=== PATIENT | female | born 1970 | race African-American/Black ===

== ENCOUNTER → 2016-10-05 | Outpatient (CLI) | payer MEDICAID ==
[2016-10-05 15:26] LABS: THYROID STIMULATING HORMONE 0.78 uIU/mL (0.47-4.68)
== END ==
LOC: OD 13:47
PROVIDERS: ATTEND Physician Assistant Medical
DX: R53.83 Other fatigue (principal); R61 Generalized hyperhidrosis
CPT/HCPCS: 36415; 84439; 84443

== ENCOUNTER 2017-11-10 16:07 | Emergency (ER) | payer SELFPAY ==
[2017-11-10] MEDS ORDERED: ONDANSETRON HCL INJ/PF 4 MG/2 ML SDV IV ONE (17:00)
[2017-11-10] MEDS ORDERED: HYDROMORPHONE HCL INJ/PF 2 MG/ML AMPULE IV ONE (17:01)
[2017-11-10] MEDS ORDERED: ACETAMINOPHEN 325 MG TABLET PO ONE (17:02)
--- NOTE | 2017-11-10 17:03 | ER Document Report ---
ED Medical Screen (RME) - General Chief Complaint: Sickle Cell Crisis Stated Complaint: ABDOMINAL PAIN Time Seen by Provider: 11/10/17 16:48 Mode of Arrival: Wheelchair Information source: Patient Notes: 46-year-old female sickle cell disease presents with complaints of abdominal pain 5 out of 5 that started yesterday patient noted to be febrile I have greeted and performed a rapid initial assessment of this patient. A comprehensive ED assessment and evaluation of the patient, analysis of test results and completion of the medical decision making process will be conducted by additional ED providers. PHYSICAL EXAMINATION: GENERAL: febrile HEAD: Atraumatic, normocephalic. EYES: Pupils equal round extraocular movements intact, conjunctiva are normal. ENT: Nares patent NECK: Normal range of motion LUNGS: No respiratory distress Abd: abd tenderness Musculoskeletal: Normal range of motion NEUROLOGICAL: Normal speech, normal gait. PSYCH: Normal mood, normal affect. SKIN: Warm, Dry, normal turgor, no rashes or lesions noted. TRAVEL OUTSIDE OF THE [place] IN LAST 30 DAYS: No - Related Data Allergies/Adverse Reactions: No Known Allergies Allergy (Verified 11/10/17 16:18) Past Medical History - Social History Frequency of alcohol use: None Drug Abuse: None - Past Medical History Cardiac Medical History: Reports: Hx Hypertension Denies: Hx Coronary Artery Disease, Hx Heart Attack Pulmonary Medical History: Reports: Hx Pneumonia - 2010 Denies: Hx Asthma, Hx Bronchitis, Hx COPD Neurological Medical History: Denies: Hx Cerebrovascular Accident, Hx Seizures Renal/ Medical History: Denies: Hx Peritoneal Dialysis Musculoskeltal Medical History: Reports Hx Arthritis - generalized Past Surgical History: Reports: Hx Breast Surgery - bilateral biospy, Hx Cholecystectomy, Hx Orthopedic Surgery - right hip, shoulder, elbow, Hx Tubal Ligation - Immunizations Hx Diphtheria, Pertussis, Tetanus Vaccination: Yes Physical Exam - Vital signs Vitals: Temp Pulse Resp BP Pulse Ox 103.0 F H 103 H 16 133/71 H 93 11/10/17 16:22 11/10/17 16:22 11/10/17 16:22 11/10/17 16:22 11/10/17 16:22 Course - Vital Signs Vital signs: Temp Pulse Resp BP Pulse Ox 103.0 F H 103 H 16 133/71 H 93 11/10/17 16:22 11/10/17 16:22 11/10/17 16:22 11/10/17 16:22 11/10/17 16:22
[2017-11-10 17:32] LABS: VENOUS BLOOD BASE EXCESS 5.4 mmol/L; VENOUS BLOOD HCO3 30.2 mmol/L (20-32); VENOUS BLOOD PCO2 45.4 mmHg (35-63); VENOUS BLOOD PH 7.44 (7.30-7.42)
[2017-11-10 17:34] LABS: ABSOLUTE RETICS # 0.118 10^6/uL (0.028-0.122); HEMATOCRIT 33.2 % (36.0-47.0); HEMOGLOBIN 11.6 g/dL (12.0-15.5); MEAN CORPUSCULAR HGB CONC 34.9 g/dL (32.0-36.0); MEAN CORPUSCULAR VOLUME 109 fl (80-97); PLATELET COUNT 292 10^3/uL (150-450); RED BLOOD COUNT 3.04 10^6/uL (3.72-5.28); RED CELL DISTRIBUTION WIDTH 19.1 % (11.5-14.0); RETICULOCYTE COUNT (AUTO) 3.86 % (0.66-2.85); WHITE BLOOD COUNT 17.1 10^3/uL (4.0-10.5)
[2017-11-10] MEDS: NORMAL SALINE 1000 ML 1,000 ML IV PRN ×4 (17:35→21:20)
[2017-11-10 17:38] LABS: INTERNATIONAL RATION (INR) 1.97; PROTHROMBIN TIME 23.5 SEC (11.4-15.4)
--- NOTE | 2017-11-10 17:42 | RADIOLOGY REPORT (SQ) ---
EXAM DESCRIPTION: CHEST PA/LAT COMPLETED DATE/TIME: 11/10/2017 5:34 pm REASON FOR STUDY: fever COMPARISON: 10/24/2015. EXAM PARAMETERS: NUMBER OF VIEWS: two views TECHNIQUE: Digital Frontal and Lateral radiographic views of the chest acquired. RADIATION DOSE: NA LIMITATIONS: none FINDINGS: LUNGS AND PLEURA: No opacities, masses or pneumothorax. No pleural effusion. MEDIASTINUM AND HILAR STRUCTURES: No masses or contour abnormalities. HEART AND VASCULAR STRUCTURES: Heart normal size. No evidence for failure. BONES: No acute findings. HARDWARE: Surgical clips in the soft tissues. OTHER: No other significant finding. IMPRESSION: NO SIGNIFICANT RADIOGRAPHIC FINDING IN THE CHEST. TECHNICAL DOCUMENTATION: JOB ID: [id number] [employer]- All Rights Reserved Reading location - IP/workstation name: [email or web address]
[2017-11-10 17:49] LABS: ALANINE AMINOTRANSFERASE 188 U/L (9-52); ALBUMIN 4.7 g/dL (3.5-5.0); ALKALINE PHOSPHATASE 322 U/L (38-126); ANION GAP 16 (5-19); ASPARTATE AMINO TRANSFERASE 366 U/L (14-36); BILIRUBIN,DIRECT 9.6 mg/dL (0.0-0.4); BILIRUBIN,TOTAL 15.5 mg/dL (0.2-1.3); BLOOD UREA NITROGEN 13 mg/dL (7-20); CALCIUM 9.8 mg/dL (8.4-10.2); CARBON DIOXIDE 30 mmol/L (22-30); CHLORIDE 97 mmol/L (98-107); GLUCOSE 110 mg/dL (75-110); POTASSIUM 3.8 mmol/L (3.6-5.0); SODIUM 143.4 mmol/L (137-145)
[2017-11-10 17:51] LABS: ABSOLUTE LYMPHOCYTES# (MANUAL) 0.5 10^3/uL (0.5-4.7); ABSOLUTE MONOCYTES # (MANUAL) 0.3 10^3/uL (0.1-1.4); ABSOLUTE NEUTROPHILS# (MANUAL) 16.2 10^3/uL (1.7-8.2); BAND NEUTROPHILS % (MANUAL) 9 % (3-5); BASOPHILS % (MANUAL) 0 % (0-2); EOSINOPHILS % (MANUAL) 0 % (0-6); LYMPHOCYTES % (MANUAL) 3 % (13-45); MONOCYTES % (MANUAL) 2 % (3-13); SEGMENTED NEUTROPHILS % (MAN) 86 % (42-78); TOTAL CELLS COUNTED 100
[2017-11-10 17:58] LABS: ANISOCYTOSIS 2+; PLATELET COMMENT ADEQUATE; TARGET CELLS 2+
[2017-11-10 17:59] LABS: OVALOCYTES SLIGHT; POIKILOCYTOSIS 2+; POLYCHROMASIA SLIGHT; SICKLE RED CELLS 1+; TOXIC VACUOLATION PRESENT
[2017-11-10] MEDS ORDERED: VANCOMYCIN HCL INJ 1000 MG VIAL IV ONE (18:09)
[2017-11-10] MEDS ORDERED: PIPERACILLIN/TAZOBACTAM 4.5 GM VIAL IV ONE (18:09)
--- NOTE | 2017-11-10 18:12 | EKG REPORT ---
SEVERITY:- ABNORMAL ECG - SINUS TACHYCARDIA NONSPECIFIC ST-T CHANGES, DIFFUSE. CLINICAL CORRELATION NEEDED. : Confirmed by: Davie Hernandez MD 10-Nov-2017 18:12:27
--- NOTE | 2017-11-10 19:11 | ER Document Report ---
Sepsis - Sepsis Documentation Sepsis Patient: Yes - Vital Signs Vitals: Temp Pulse Resp BP Pulse Ox 103.0 F H 103 H 16 133/71 H 93 11/10/17 16:22 11/10/17 16:22 11/10/17 16:22 11/10/17 16:22 11/10/17 16:22 Interpretation: Tachycardic, Febrile - Cardiovascular Peripheral Pulse Strength: Strong Capillary refill: < 3 seconds Rhythm: Tachycardia Heart Sounds: Normal auscultation - Respiratory Breath Sounds: Clear. negative: Wheezing, Decreased air movement, Productive cough, Fine Crackle, Coarse Respiratory Status: No respiratory distress. No: Respiratory distress, Tachypnea
--- NOTE | 2017-11-10 19:12 | ER Document Report ---
ED General <NATASHA DALEY - Last Filed: 11/11/17 03:00> - General Mode of Arrival: Wheelchair Information source: Patient, Parent, Relative Cannot obtain history due to: Altered mental status TRAVEL OUTSIDE OF THE [place] IN LAST 30 DAYS: No - HPI Onset: Yesterday Onset/Duration: Gradual Quality of pain: Stabbing, Throbbing Severity: Moderate Pain Level: 3 Associated symptoms: Diarrhea, Fever, Nausea, Vomiting. denies: Nonproductive cough, Productive cough Exacerbated by: Denies Relieved by: Denies Similar symptoms previously: No Recently seen / treated by doctor: No <SANTOSRAFAL MURRAY - Last Filed: 11/12/17 12:34> - General Chief Complaint: Sickle Cell Crisis Stated Complaint: ABDOMINAL PAIN Time Seen by Provider: 11/10/17 16:48 Notes: 46-year-old female with a history of sickle cell anemia presents with complaint of fever, nausea, vomiting and abdominal pain that started 1 day prior to arrival. Patient's abdominal pain is diffusely located, described as cramping, throbbing. She has had associated nausea, vomiting and diarrhea. He also admits to dysuria for 1 week. is at the bedside and states patient was "out of it last night". Describes her as writhing around in pain. Denies any black or bloody stools, recent antibiotic use. She states that this does not feel like her typical sickle cell flare. Patient has had sick contacts with multiple family members with similar sx's. (RAFAL SANTOS) - Related Data Allergies/Adverse Reactions: No Known Allergies Allergy (Verified 11/10/17 16:18) Past Medical History <NATASHA DALEY - Last Filed: 11/11/17 03:00> - General Information source: Patient - Social History Smoking Status: Never Smoker Frequency of alcohol use: None Drug Abuse: None Lives with: Spouse/Significant other Family History: Reviewed & Not Pertinent Patient has suicidal ideation: No Patient has homicidal ideation: No - Past Medical History Cardiac Medical History: Reports: Hx Hypertension, Other - Consult anemia, spinal necrosis chronic pain Denies: Hx Coronary Artery Disease, Hx Heart Attack Pulmonary Medical History: Reports: Hx Pneumonia - 2010 Denies: Hx Asthma, Hx Bronchitis, Hx COPD EENT Medical History: Reports: None Neurological Medical History: Denies: Hx Cerebrovascular Accident, Hx Seizures Endocrine Medical History: Reports: None Renal/ Medical History: Denies: Hx Peritoneal Dialysis Musculoskeltal Medical History: Reports Hx Arthritis - generalized Infectious Medical History: Reports: None Past Surgical History: Reports: Hx Breast Surgery - bilateral biospy, Hx Cholecystectomy, Hx Orthopedic Surgery - right hip, shoulder, elbow, Hx Tubal Ligation - Immunizations Hx Diphtheria, Pertussis, Tetanus Vaccination: Yes Hx Pneumococcal Vaccination: 06/12/11 <RAFAL SANTOS - Last Filed: 11/12/17 12:34> Other: history of cholecystectomy (RAFAL SANTOS) Review of Systems - Review of Systems Constitutional: Chills, Diaphoresis, Fever, Malaise, Weakness EENT: No symptoms reported Cardiovascular: No symptoms reported Respiratory: No symptoms reported Gastrointestinal: Abdominal pain, Diarrhea, Nausea, Vomiting Genitourinary: Dysuria Female Genitourinary: No symptoms reported Musculoskeletal: Back pain, Muscle pain Skin: No symptoms reported Hematologic/Lymphatic: No symptoms reported Neurological/Psychological: No symptoms reported <RAFAL SANTOS - Last Filed: 11/12/17 12:34> Physical Exam - Vital signs Interpretation: Normal, Tachycardic, Febrile - General General appearance: Other - Ill-appearing, In distress: Mild - HEENT Head: Normocephalic, Atraumatic Eyes: Scleral icterus Conjunctiva: Icteric Extraocular movements intact: Yes Pupils: PERRL - Respiratory Respiratory status: No respiratory distress Chest status: Nontender Breath sounds: Normal Chest palpation: Normal - Cardiovascular Rhythm: Regular, Tachycardia Heart sounds: Normal auscultation Murmur: No - Abdominal Inspection: No: Wounds Distension: No distension Bowel sounds: Normal Tenderness: Nontender, Tender, Other - Diffusely tender Organomegaly: No organomegaly - Back Back: Normal, Nontender. No: CVA tenderness - Extremities General upper extremity: Normal inspection, Nontender, Normal color, Normal ROM , Normal temperature General lower extremity: Normal inspection, Nontender, Normal color, Normal ROM , Normal temperature, Normal weight bearing. No: Jese's sign - Neurological Neuro grossly intact: Yes Cognition: Other - Somnolent but arousable Orientation: AAOx4 Benny Coma Scale Eye Opening: Spontaneous [place] Coma Scale Verbal: Oriented [place] Coma Scale Motor: Obeys Commands Benny Coma Scale Total: 15 Speech: Normal Motor strength normal: LUE, RUE, LLE, RLE Sensory: Normal - Skin Skin Temperature: Warm Skin Moisture: Dry Skin Color: Normal <RAFAL SANTOS - Last Filed: 11/12/17 12:34> - Vital signs Vitals: Temp Pulse Resp BP Pulse Ox 103.0 F H 103 H 16 133/71 H 93 11/10/17 16:22 11/10/17 16:22 11/10/17 16:22 11/10/17 16:22 11/10/17 16:22 Course - Laboratory Result Diagrams: 11/10/17 17:19 11/10/17 17:19 <NATASHA DALEY - Last Filed: 11/11/17 03:00> - Laboratory Result Diagrams: 11/10/17 17:19 11/10/17 17:19 <RAFAL SANTOS - Last Filed: 11/12/17 12:34> - Re-evaluation Re-evalutation: 11/11/17 03:00 Patient is now complaining of chills, temperatures being rechecked, transport crew is at bedside, heart rate is 97, pulse ox is 97, blood pressure is 110/71 which is improved compared to prior measurements. Patient is stable for transfer to [facility] for further evaluation and treatment of presumed ascending cholangitis. (NATASHA DALEY) - Vital Signs Vital signs: Temp Pulse Resp BP Pulse Ox 98.3 F 103 H 11 L 97/77 L 97 11/11/17 03:12 11/10/17 16:22 11/11/17 02:51 11/11/17 02:51 11/11/17 02:51 - Laboratory Laboratory results interpreted by me: 11/10/17 11/10/17 11/10/17 17:19 17:19 17:19 WBC 17.1 H RBC 3.04 L Hgb 11.6 L Hct 33.2 L MCV 109 H MCH 38.0 H RDW 19.1 H Seg Neuts % (Manual) 86 H Band Neutrophils % 9 H Lymphocytes % (Manual) 3 L Monocytes % (Manual) 2 L Abs Neuts (Manual) 16.2 H Retic Count (auto) 3.86 H PT 23.5 H VBG pH Chloride 97 L Lactic Acid Total Bilirubin 15.5 H Direct Bilirubin 9.6 H AST 366 H ALT 188 H Alkaline Phosphatase 322 H Total Protein 9.0 H Lipase Urine Protein Urine Blood Urine Bilirubin Urine Urobilinogen 11/10/17 11/10/17 11/10/17 17:19 17:19 17:19 WBC RBC Hgb Hct MCV MCH RDW Seg Neuts % (Manual) Band Neutrophils % Lymphocytes % (Manual) Monocytes % (Manual) Abs Neuts (Manual) Retic Count (auto) PT VBG pH 7.44 H Chloride Lactic Acid 3.6 H Total Bilirubin Direct Bilirubin AST ALT Alkaline Phosphatase Total Protein Lipase 303.2 H Urine Protein Urine Blood Urine Bilirubin Urine Urobilinogen 11/10/17 18:25 WBC RBC Hgb Hct MCV MCH RDW Seg Neuts % (Manual) Band Neutrophils % Lymphocytes % (Manual) Monocytes % (Manual) Abs Neuts (Manual) Retic Count (auto) PT VBG pH Chloride Lactic Acid Total Bilirubin Direct Bilirubin AST ALT Alkaline Phosphatase Total Protein Lipase Urine Protein 100 H Urine Blood SMALL H Urine Bilirubin MODERATE H Urine Urobilinogen 4.0 H Discharge <NATASHA DALEY - Last Filed: 11/11/17 03:00> - Discharge Admitting Provider: Anuradha Unit Admitted: ICU <RAFAL SANTOS - Last Filed: 11/12/17 12:34> - Discharge Clinical Impression: Hepatitis, Hx of sickle cell anemia Sepsis Qualifiers: Sepsis type: sepsis due to unspecified organism Qualified Code(s): A41.9 - Sepsis, unspecified organism Pancreatitis Qualifiers: Chronicity: acute Pancreatitis type: biliary Acute pancreatitis complication: unspecified Qualified Code(s): K85.10 - Biliary acute pancreatitis without necrosis or infection Condition: Critical Disposition: [facility] Referrals: DK YEAGER MD [Primary Care Provider] - Follow up as needed
[2017-11-10 19:27] LABS: APPEARANCE,URINE CLEAR; BILIRUBIN,URINE MODERATE (NEGATIVE); COLOR,URINE AMBER; GLUCOSE, URINE NEGATIVE (NEGATIVE); KETONES,URINE NEGATIVE (NEGATIVE); LEUKOCYTE ESTERASE,URINE NEGATIVE (NEGATIVE); NITRITE,URINE NEGATIVE (NEGATIVE); PROTEIN,URINE 100 mg/dL (NEGATIVE); URINE SPECIFIC GRAVITY 1.012
[2017-11-10 19:36] LABS: A TYPE INFLUENZA AG NEGATIVE (NEGATIVE); B INFLUENZA AG NEGATIVE (NEGATIVE)
--- NOTE | 2017-11-10 23:32 | RADIOLOGY REPORT (SQ) ---
EXAM DESCRIPTION: CT ABD/PELVIS WITH IV ORAL CLINICAL HISTORY: 46 years Female, abd pain, fever, elevated lactate and lfts COMPARISON: None. TECHNIQUE: 91 mL Isovue-370 IV and oral contrast. Coronal and sagittal reformat. This exam was performed according to our departmental dose-optimization program, which includes automated exposure control, adjustment of the mA and/or kV according to patient size and/or use of iterative reconstruction technique. FINDINGS: Small patchy dependent opacities of bilateral lower lobes, right more than left. Mild fat inflammation associated with the pancreatic head and second duodenal portion. Prominent retroperitoneal lymph nodes. No significant free fluid. Calcified infarcted splenic remnant. Normal appendix. Cholecystectomy clips and 1.1 cm diameter common bile duct. 1.0 cm calcification associated with the left adnexa. Moderate L5 compression deformity mild L4 and L3 vertebral height loss and minimal anterior vertebral wedging at the lower thoracic levels. Right total hip arthroplasty and moderate osteoarthritis of the left hip. Inferior thorax, liver, adrenals, renal system, gastrointestinal tract, pelvic organs, lymphatics, vasculature, and musculoskeleton appear otherwise unremarkable. IMPRESSION: 1. Mild pancreatitis/duodenitis. 2. Small bibasilar pneumonia/atelectasis.
[2017-11-10] MEDS ORDERED: NORMAL SALINE 1000 ML 1,000 ML IV PRN (23:48)
[2017-11-11 00:32] VITALS: BP 97/77
[2017-11-11] MEDS ORDERED: FENTANYL CITRATE INJ/PF 100 MCG/2 ML AMPUL IV ONE ×2 (00:48→02:07)
== END 2017-11-11 03:12 | disposition short-term general hospital (02) ==
LOC: ER 16:07
DX: A41.9 Sepsis, unspecified organism (principal); K85.10 Biliary acute pancreatitis without necrosis or infection; K75.9 Inflammatory liver disease, unspecified; R19.7 Diarrhea, unspecified; R11.2 Nausea with vomiting, unspecified; R10.84 Generalized abdominal pain; R30.0 Dysuria; M54.9 Dorsalgia, unspecified; R53.1 Weakness; R53.81 Other malaise; R50.9 Fever, unspecified; D57.1 Sickle-cell disease without crisis; I10 Essential (primary) hypertension; Z90.49 Acquired absence of other specified parts of digestive tract
CPT/HCPCS: 93005; 96376; 99285; 96361; 96375; 96365; 96367; 36415; 87040; 87086; 83690; 85025; 85610; 87077; 85045; 80053; 81001; 87186; 82803; 83605; 87804; 71046; 74177; 93010; J3010; J1170; J2405; J7030 ×2; J3370; J2543

== ENCOUNTER → 2018-03-14 | Outpatient (CLI) | payer MEDICAID ==
--- NOTE | 2018-03-14 11:56 | RADIOLOGY REPORT (SQ) ---
EXAM DESCRIPTION: CT ABD/PELVIS WITH IV ORAL COMPLETED DATE/TIME: 03/14/2018 8:59 am REASON FOR STUDY: COMMON BILE DUCT STRICTURE (K83.1) K83.1 OBSTRUCTION OF BILE DUCT COMPARISON: CT abdomen pelvis 11/10/2017, 04/22/2011 TECHNIQUE: CT scan of the abdomen and pelvis performed using helical scanning technique with dynamic intravenous contrast injection. Patient drank oral contrast. Images reviewed with lung, soft tissue , and bone windows. Reconstructed coronal and sagittal MPR images reviewed. Delayed images for evalua tion of the urinary system also acquired. All images stored on PACS. All CT scanners at this facility use dose modulation, iterative reconstruction, and/or weight based d osing when appropriate to reduce radiation dose to as low as reasonably achievable (ALARA). [facility]: Dose Right [facility]: CareDose [facility]: Dose Right [facility]: Teradose 4D [facility]: N2Care CONTRAST TYPE AND DOSE: contrast/concentration: Isovue 300.00 mg/ml; Total Contrast Delivered: 83.0 ml; Total Saline Delivered: 68.0 ml RENAL FUNCTION: Creatinine 0.65 RADIATION DOSE: CT Rad equipment meets quality standard of care and radiation dose reduction techniq ues were employed. CTDIvol: 8.5 - 9.9 mGy. DLP: 971 mGy-cm.. LIMITATIONS: None. FINDINGS: LOWER CHEST: No significant findings. No nodules or infiltrates. LIVER: Normal size. No masses. No dilated ducts. Patient has a 8 endoscopically placed biliary sten t, in good position in the common bile duct. There is a small air bubble in the common duct and in t he left-sided intrahepatic ducts indicating stent patency. 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 No significant calcifications. No adjacent inflammation or peripancreatic fluid collections. Pancreatic duct not dilated. GALLBLADDER: Surgically absent ADRENAL GLANDS: No significant masses or asymmetry. RIGHT KIDNEY AND URETER: No solid masses. No significant calcifications. No hydronephrosis or hyd roureter. LEFT KIDNEY AND URETER: No solid masses. No significant calcifications. No hydronephrosis or hydr oureter. AORTA AND VESSELS: No aneurysm. No dissection. Renal arteries, SMA, celiac without stenosis. RETROPERITONEUM: No retroperitoneal adenopathy, hemorrhage or masses. BOWEL AND PERITONEAL CAVITY: Patient drank oral contrast. No bowel obstruction. No free intraperito lisbeth air or fluid. APPENDIX: Normal. PELVIS: No mass. No free fluid. Normal bladder. Normal size female pelvic organs ABDOMINAL WALL: No masses. No hernias. BONES: Old right hip replacement. Avascular necrosis with advanced osteoarthritis left hip. Charact eristic vertebral body endplate depressions in the lower lumbar spine from sickle cell OTHER: No other significant finding. IMPRESSION: Endoscopically placed biliary stent in good positioning. No current CT evidence of panc reatitis. TECHNICAL DOCUMENTATION: JOB ID: [id number] Quality ID # [id number]: Final reports with documentation of one or more dose reduction techniques (e.g., Au tomated exposure control, adjustment of the mA and/or kV according to patient size, use of iterative reconstruction technique) 2010 [employer]- All Rights Reserved Reading location - IP/workstation name: [email or web address]
== END ==
LOC: RAD 07:39
PROVIDERS: ATTEND Internal Medicine
DX: K83.1 Obstruction of bile duct (principal)
CPT/HCPCS: 74177

== ENCOUNTER → 2018-03-30 | Outpatient (CLI) | payer MEDICAID | LOC: OD 13:01 | PROVIDERS: ATTEND Internal Medicine Geriatric Medicine | DX: M25.532 Pain in left wrist (principal) | CPT/HCPCS: 36415; 84550 ==

== ENCOUNTER 2018-09-27 12:44 | Emergency (ER) | payer SELFPAY ==
--- NOTE | 2018-09-27 14:13 | ER Document Report ---
ED Medical Screen (RME) - General Chief Complaint: Abdominal Pain Stated Complaint: ABDOMINAL PAIN/WRIST PAIN Time Seen by Provider: 09/27/18 14:00 Notes: 47-year female to the emergency department chief complaint of abdominal pain. History of recurrent obstructive issues with her common bile duct. Has stents in her liver at this time. History of sickle cell disease and having pain in her wrists as well. I have greeted and performed a rapid initial assessment of this patient. A comprehensive ED assessment and evaluation of the patient, analysis of test results and completion of the medical decision making process will be conducted by additional ED providers. TRAVEL OUTSIDE OF THE [place] IN LAST 30 DAYS: No - Related Data Allergies/Adverse Reactions: No Known Allergies Allergy (Verified 09/27/18 12:46) Past Medical History - Social History Frequency of alcohol use: None Drug Abuse: None - Past Medical History Cardiac Medical History: Reports: Hx Hypertension Denies: Hx Coronary Artery Disease, Hx Heart Attack Pulmonary Medical History: Reports: Hx Pneumonia - 2010 Denies: Hx Asthma, Hx Bronchitis, Hx COPD Neurological Medical History: Denies: Hx Cerebrovascular Accident, Hx Seizures Renal/ Medical History: Denies: Hx Peritoneal Dialysis Musculoskeltal Medical History: Reports Hx Arthritis - generalized Past Surgical History: Reports: Hx Breast Surgery - bilateral biospy, Hx Cholecystectomy, Hx Orthopedic Surgery - right hip, b/l shoulder, left elbow, Hx Tubal Ligation - Immunizations Hx Diphtheria, Pertussis, Tetanus Vaccination: Yes Physical Exam - Vital signs Vitals: Temp Pulse Resp BP Pulse Ox 98.6 F 74 18 125/77 97 09/27/18 12:57 09/27/18 12:57 09/27/18 12:57 09/27/18 12:57 09/27/18 12:57 - Abdominal Notes: Tenderness in the right upper quadrant. Course - Vital Signs Vital signs: Temp Pulse Resp BP Pulse Ox 98.6 F 74 18 125/77 97 09/27/18 12:57 09/27/18 12:57 09/27/18 12:57 09/27/18 12:57 09/27/18 12:57 Doctor's Discharge - Discharge Referrals: RABIA MARTINI MD [Primary Care Provider] - Follow up as needed
[2018-09-27 16:05] LABS: ABSOLUTE RETICS # 0.077 10^6/uL (0.028-0.122); HEMATOCRIT 31.7 % (36.0-47.0); MEAN CORPUSCULAR HGB CONC 34.7 g/dL (32.0-36.0); MEAN CORPUSCULAR VOLUME 112 fl (80-97); PLATELET COUNT 305 10^3/uL (150-450); RED BLOOD COUNT 2.83 10^6/uL (3.72-5.28); RED CELL DISTRIBUTION WIDTH 16.2 % (11.5-14.0); RETICULOCYTE COUNT (AUTO) 2.72 % (0.66-2.85); WHITE BLOOD COUNT 3.7 10^3/uL (4.0-10.5)
[2018-09-27 16:09] LABS: APPEARANCE,URINE CLEAR; BILIRUBIN,URINE SMALL (NEGATIVE); COLOR,URINE AMBER; GLUCOSE, URINE NEGATIVE (NEGATIVE); KETONES,URINE NEGATIVE (NEGATIVE); LEUKOCYTE ESTERASE,URINE NEGATIVE (NEGATIVE); NITRITE,URINE NEGATIVE (NEGATIVE); PROTEIN,URINE NEGATIVE (NEGATIVE); URINE SPECIFIC GRAVITY 1.011
[2018-09-27 16:18] LABS: ALANINE AMINOTRANSFERASE 199 U/L (9-52); ALBUMIN 4.4 g/dL (3.5-5.0); ALKALINE PHOSPHATASE 239 U/L (38-126); ANION GAP 7 (5-19); ASPARTATE AMINO TRANSFERASE 561 U/L (14-36); BILIRUBIN,DIRECT 1.4 mg/dL (0.0-0.4); BLOOD UREA NITROGEN 8 mg/dL (7-20); CALCIUM 8.9 mg/dL (8.4-10.2); CARBON DIOXIDE 32 mmol/L (22-30); CHLORIDE 101 mmol/L (98-107); GLUCOSE 97 mg/dL (75-110); LIPASE 30.5 U/L (23-300); POTASSIUM 4.2 mmol/L (3.6-5.0); SODIUM 140.2 mmol/L (137-145); TOTAL PROTEIN 8.5 g/dL (6.3-8.2)
[2018-09-27 16:29] LABS: ABSOLUTE MONOCYTES # (MANUAL) 0.3 10^3/uL (0.1-1.4); ABSOLUTE NEUTROPHILS# (MANUAL) 1.4 10^3/uL (1.7-8.2); BASOPHILS % (MANUAL) 0 % (0-2); EOSINOPHILS % (MANUAL) 0 % (0-6); LYMPHOCYTES % (MANUAL) 55 % (13-45); MONOCYTES % (MANUAL) 7 % (3-13); NUCLEATED RED BLOOD CELLS 1 /100 WBC (0); SEGMENTED NEUTROPHILS % (MAN) 38 % (42-78); TOTAL CELLS COUNTED 100
[2018-09-27 16:30] LABS: POLYCHROMASIA 1+
[2018-09-27 16:31] LABS: ANISOCYTOSIS 1+; OVALOCYTES SLIGHT; PLATELET COMMENT ADEQUATE; POIKILOCYTOSIS 1+; SICKLE RED CELLS 1+; TARGET CELLS SLIGHT
--- NOTE | 2018-09-27 16:32 | RADIOLOGY REPORT (SQ) ---
EXAM DESCRIPTION: U/S ABDOMEN LIMITED W/O DOP COMPLETED DATE/TIME: 09/27/2018 4:20 pm REASON FOR STUDY: ruq pain, no GB, hx of common duct obst COMPARISON: None. TECHNIQUE: Dynamic and static grayscale images acquired of the abdomen and recorded on PACS. Additio nal selected color Doppler and spectral images recorded. LIMITATIONS: None. FINDINGS: PANCREAS: No masses. Visualized pancreatic duct normal caliber. LIVER: No masses. Echotexture normal. LIVER VASCULATURE: Normal directional flow of the main portal vein and hepatic veins. GALLBLADDER: Surgically absent. ULTRASOUND-DETECTED ORTEGA'S SIGN: Negative. INTRAHEPATIC DUCTS AND COMMON DUCT: The common bile duct is upper limits of normal, measuring 8.2 mm. No visualized filling defects. INFERIOR VENA CAVA: Normal flow. AORTA: No aneurysm. RIGHT KIDNEY: Normal size. Normal echogenicity. No solid or suspicious masses. No hydronephrosis. No calcifications. PERITONEAL AND RIGHT PLEURAL SPACE: No ascites or effusions. OTHER: No other significant findings. IMPRESSION: NORMAL RIGHT UPPER QUADRANT ULTRASOUND. TECHNICAL DOCUMENTATION: JOB ID: [id number] [email or web address]- All Rights Reserved Reading location - IP/workstation name: [email or web address]
[2018-09-27] MEDS ORDERED: NORMAL SALINE 1000 ML 1,000 ML IV ONE (17:07)
[2018-09-27] MEDS ORDERED: ONDANSETRON HCL INJ/PF 4 MG/2 ML SDV IV PRN (17:08)
[2018-09-27] MEDS ORDERED: FENTANYL CITRATE INJ/PF 100 MCG/2 ML AMPUL IV PRN (17:09)
--- NOTE | 2018-09-27 20:31 | ER Document Report ---
ED General - General Chief Complaint: Abdominal Pain Stated Complaint: ABDOMINAL PAIN/WRIST PAIN Time Seen by Provider: 09/27/18 14:00 Notes: Patient is a 47-year-old female with history of biliary stenosis that presents to the emergency department for chief complaint of right upper quadrant abdominal pain, vomiting and diarrhea. Patient states that she ate a fatty her meal about 2 days ago including peanut butter and some other food that she states seem to irritate her right upper quadrant, she started having significant pain she describes as a 6 out of 10, sharp and constant in nature, and seem to be worse with eating any food, she had associated vomiting and diarrhea with this. She states that back in November 2017, she had jaundice, and had to be transferred to [place], where they placed a bile duct stent, and she was due to have this removed in the next few months. She denies any any fevers, chills, night sweats, chest pain, shortness of breath, dysuria or hematuria. She secondarily complains of bilateral wrist pain, that seems worse on the right compared to the left, she has been worked up for this by her primary care physician, it has been bothering her for the last 2 months, she is been trying to see an orthopedic surgeon but has not been in to see one yet she is wearing a brace on her left wrist. She states the pain is mainly at the base of her thumbs bilaterally. Past Medical History: Biliary stenosis, and obstructive jaundice, sickle cell anemia Past Surgical History: Total hip arthroplasty, bile duct stent placement Social History: Denies current tobacco, alcohol or drug use. Family History: Reviewed and noncontributory for presenting illness Allergies: Reviewed, see documented allergy list. REVIEW OF SYSTEMS: Other than noted above, the 12 point review of systems was reviewed with the patient and were negative, all pertinent findings are included in the HPI. PHYSICAL EXAMINATION: Vital signs reviewed, nursing noted reviewed. GENERAL: Patient appears uncomfortable exam, nontoxic-appearing however HEAD: Atraumatic, normocephalic. EYES: Eyes appear normal, extraocular movements intact, mild scleral icterus, conjunctiva are normal. ENT: nares patent, oropharynx clear without exudates. Moist mucous membranes. NECK: Normal range of motion, supple without lymphadenopathy LUNGS: Breath sounds clear to auscultation bilaterally and equal. No wheezes rales or rhonchi. HEART: Regular rate and rhythm without murmurs ABDOMEN: Soft, right upper quadrant and epigastric tenderness with palpation, normoactive bowel sounds. No rebound, guarding, or rigidity. No masses appreciated. EXTREMITIES: Nontender, good range of motion, no pitting or edema. NEUROLOGICAL: No focal neurological deficits. Moves all extremities spontaneously Motor and sensory grossly intact on exam. PSYCH: Normal mood, normal affect. SKIN: Warm, Dry, normal turgor, no rashes or lesions noted on exposed skin TRAVEL OUTSIDE OF THE [place] IN LAST 30 DAYS: No - Related Data Allergies/Adverse Reactions: No Known Allergies Allergy (Verified 09/27/18 12:46) Past Medical History - Social History Smoking Status: Never Smoker Frequency of alcohol use: None Drug Abuse: None Family History: Reviewed & Not Pertinent Patient has suicidal ideation: No Patient has homicidal ideation: No - Past Medical History Cardiac Medical History: Reports: Hx Hypertension Denies: Hx Coronary Artery Disease, Hx Heart Attack Pulmonary Medical History: Reports: Hx Pneumonia - 2010 Denies: Hx Asthma, Hx Bronchitis, Hx COPD Neurological Medical History: Denies: Hx Cerebrovascular Accident, Hx Seizures Renal/ Medical History: Denies: Hx Peritoneal Dialysis Musculoskeletal Medical History: Reports Hx Arthritis - generalized Past Surgical History: Reports: Hx Breast Surgery - bilateral biospy, Hx Cholecystectomy, Hx Orthopedic Surgery - right hip, b/l shoulder, left elbow, Hx Tubal Ligation - Immunizations Hx Diphtheria, Pertussis, Tetanus Vaccination: Yes Hx Pneumococcal Vaccination: 06/12/11 Physical Exam - Vital signs Vitals: Temp Pulse Resp BP Pulse Ox 98.6 F 74 18 125/77 97 09/27/18 12:57 09/27/18 12:57 09/27/18 12:57 09/27/18 12:57 09/27/18 12:57 Course - Re-evaluation Re-evalutation: Patient seen and examined vital signs reviewed. Laboratory data and imaging were ordered as appropriate for the patient's presenting symptoms and complaint, with consideration of any critical or life threatening conditions that may be associated with their obtained history and exam as noted above. Patient was treated with IV fluids, and fentanyl for pain as well as Zofran for her nausea Results were reviewed when available and demonstrated increasing bilirubin from previous labs from April 2018, her total bilirubin is now 3.0, her LFTs are rising as well, her AST is over 500, and was normal back in April. Her ultrasound is essentially negative, bile duct was 8 mm, within the upper limits of normal, the stent was not commented on in the imaging, there is concern for possible stent migration because of this. The patient was re-evaluated and was improved, but still having some pain, she was given an additional dose of pain medication with IV Dilaudid 0.5 mg. Evaluation was most consistent with acute cholangitis, possible stent migration, and obstructive jaundice, call was placed to transfer the patient to [facility] where she had her initial procedure Results were discussed with the patient at this point after careful considera tion I feel that that patient should be transferred to [facility] due to Acute cholangitis, case discussed with Dr. Bates, who graciously accepted the patient onto their service, states there could be a delay in transfer as beds are slammed in their facility, patient made aware of this. This was discussed with the patient that it is in the best interest for their care to be transferred, the risks and benefits of transfer were discussed, including but not limited to clinical deterioration during transport, respiratory distress, and potential for traumatic injuries. Patient agreed with this plan of care. *Note is created using voice recognition software and may contain spelling, syntax or grammatical errors. Laboratory 09/27/18 09/27/18 09/27/18 15:30 15:39 15:39 WBC 3.7 L RBC 2.83 L Hgb 11.0 L Hct 31.7 L MCV 112 H MCH 39.0 H MCHC 34.7 RDW 16.2 H Plt Count 305 Total Counted 100 Seg Neutrophils % Not Reportable Seg Neuts % (Manual) 38 L Lymphocytes % Not Reportable Lymphocytes % (Manual) 55 H Monocytes % Not Reportable Monocytes % (Manual) 7 Eosinophils % Not Reportable Eosinophils % (Manual) 0 Basophils % Not Reportable Basophils % (Manual) 0 Absolute Neutrophils Not Reportable Abs Neuts (Manual) 1.4 L Absolute Lymphocytes Not Reportable Abs Lymphs (Manual) 2.0 Absolute Monocytes Not Reportable Abs Monocytes (Manual) 0.3 Absolute Eosinophils Not Reportable Absolute Eos (Manual) 0.0 Absolute Basophils Not Reportable Abs Basophils (Manual) 0.0 Nucleated RBCs 1 Platelet Comment ADEQUATE Polychromasia 1+ Poikilocytosis 1+ Anisocytosis 1+ Macrocytosis 3+ Sickle Cells 1+ Target Cells SLIGHT Ovalocytes SLIGHT Retic Count (auto) 2.72 Absolute Retic 0.077 Sodium 140.2 Potassium 4.2 Chloride 101 Carbon Dioxide 32 H Anion Gap 7 BUN 8 Creatinine 0.49 L Est GFR ( Amer) > 60 Est GFR (Non-Af Amer) > 60 Glucose 97 Calcium 8.9 Total Bilirubin 3.0 H Direct Bilirubin 1.4 H Neonat Total Bilirubin Not Reportable Neonat Direct Bilirubin Not Reportable Neonat Indirect Bili Not Reportable AST 561 H ALT 199 H Alkaline Phosphatase 239 H Total Protein 8.5 H Albumin 4.4 Lipase 30.5 Urine Color CALI Urine Appearance CLEAR Urine pH 6.0 Ur Specific [place] 1.011 Urine Protein NEGATIVE Urine Glucose (UA) NEGATIVE Urine Ketones NEGATIVE Urine Blood NEGATIVE Urine Nitrite NEGATIVE Urine Bilirubin SMALL H Urine Urobilinogen 4.0 H Ur Leukocyte Esterase NEGATIVE Urine WBC (Auto) 1 Urine RBC (Auto) 0 Squamous Epi Cells Auto 2 Urine Mucus (Auto) RARE Urine Ascorbic Acid NEGATIVE Abdomen Ultrasound 09/27/18 14:11 IMPRESSION: NORMAL RIGHT UPPER QUADRANT ULTRASOUND. - Vital Signs Vital signs: Temp Pulse Resp BP Pulse Ox 98.6 F 74 16 126/78 H 98 09/27/18 12:57 09/27/18 12:57 09/27/18 23:01 09/27/18 23:01 09/27/18 23:01 - Laboratory Result Diagrams: 09/27/18 15:39 09/27/18 15:39 Laboratory results interpreted by me: 09/27/18 09/27/18 09/27/18 15:30 15:39 15:39 WBC 3.7 L RBC 2.83 L Hgb 11.0 L Hct 31.7 L MCV 112 H MCH 39.0 H RDW 16.2 H Seg Neuts % (Manual) 38 L Lymphocytes % (Manual) 55 H Abs Neuts (Manual) 1.4 L Carbon Dioxide 32 H Creatinine 0.49 L Total Bilirubin 3.0 H Direct Bilirubin 1.4 H AST 561 H ALT 199 H Alkaline Phosphatase 239 H Total Protein 8.5 H Urine Bilirubin SMALL H Urine Urobilinogen 4.0 H Discharge - Discharge Clinical Impression: Acute cholangitis, Hyperbilirubinemia Anemia Qualifiers: Anemia type: unspecified type Qualified Code(s): D64.9 - Anemia, unspecified Condition: Stable Disposition: [facility] Referrals: RABIA MARTINI MD [Primary Care Provider] - Follow up as needed
[2018-09-27] MEDS ORDERED: HYDROMORPHONE HCL INJ/PF 2 MG/ML AMPULE IV ONE (23:43)
[2018-09-28] MEDS ORDERED: HYDROMORPHONE HCL INJ/PF 2 MG/ML AMPULE IV ONE (05:05)
[2018-09-28] MEDS: HYDROMORPHONE HCL INJ/PF 2 MG/ML AMPULE IV PRN ×3 (10:10→18:48)
[2018-09-28] MEDS: NORMAL SALINE 1000 ML 1,000 ML IV PRN ×2 (10:10→17:40)
[2018-09-28 17:31] VITALS: BP 129/83
[2018-09-28] MEDS ORDERED: ENOXAPARIN SODIUM INJ 40 MG/0.4 ML DISP.SYRIN SUBCUT SCH ×2 (19:30→20:30)
[2018-09-28] MEDS ORDERED: DEXTROSE 5%-1/2 NORMAL SALINE 1,000 ML IV ONE (19:31)
--- NOTE | 2018-09-28 19:34 | ER Document Report ---
Doctor's Note Notes: 09/28/18 19:33 Patient remained stable at this time pending transport. Repeat labs have been ordered. Maintenance fluid ordered. Daily had hydrochlorothiazide, hydroxyurea and DVT prophylaxis with Lovenox ordered. Labs pending at this time. Will notify oncoming doc to follow-up.
[2018-09-28] MEDS ORDERED: HYDROCHLOROTHIAZIDE 25 MG TABLET PO ONE (21:00)
[2018-09-28] MEDS ORDERED: HYDROXYUREA 500 MG CAPSULE PO SCH (22:00)
[2018-09-28] MEDS ORDERED: HYDROCHLOROTHIAZIDE 25 MG TABLET PO SCH (22:00)
== END 2018-09-28 21:36 | disposition short-term general hospital (02) ==
LOC: ER 12:44
DX: K83.09 Other cholangitis (principal); E80.6 Other disorders of bilirubin metabolism; D64.9 Anemia, unspecified; R10.9 Unspecified abdominal pain; M25.532 Pain in left wrist; M25.531 Pain in right wrist; I10 Essential (primary) hypertension; D57.1 Sickle-cell disease without crisis; Z90.49 Acquired absence of other specified parts of digestive tract; Z98.51 Tubal ligation status
CPT/HCPCS: 96376; 99285; 96372; 96361; 96374; 96375; 36415; 83690; 85025; 85045; 80053; 81001; 76705; J3010; J1650; J1170; J2405; J7030 ×2

== ENCOUNTER → 2019-01-15 | Outpatient (CLI) | payer MEDICAID | LOC: OD 14:26 | PROVIDERS: ATTEND Internal Medicine Geriatric Medicine | DX: M25.531 Pain in right wrist (principal) | CPT/HCPCS: 36415; 85652; 86038; 86140; 86430 ==

== ENCOUNTER 2019-02-02 16:54 | Emergency (ER) | payer MEDICAID ==
--- NOTE | 2019-02-02 17:23 | ER Document Report ---
ED Medical Screen (RME) - General Chief Complaint: Abdominal Pain Stated Complaint: ABDOMINAL PAIN Time Seen by Provider: 02/02/19 17:17 Primary Care Provider: RABIA MARTINI MD [Primary Care Provider] - Follow up as needed TRAVEL OUTSIDE OF THE [place] IN LAST 30 DAYS: No - HPI Notes: 02/02/19 17:20 Patient is a 48-year-old female with a history of cholecystectomy and subsequent biliary stenosis with stent placement, sickle cell anemia who presents complaining of right upper quadrant pain and nausea that began after eating banana bread about 4 hours ago. Patient states that the pain in the right upper quadrant and nausea have been worsening. Her last bowel movement was 4-5 days ago, which is not uncommon for her due to the pain medicine that she is on. She is otherwise urinating normally. Denies drug allergies. Denies MCKENNA, fever, neck pain, URI, CP, SOB, dysuria, back pain, or rash. I have treated and performed a rapid initial assessment of this patient. A c omprehensive ED assessment and evaluation of the patient, analysis of test results and completion of medical decision making process will be conducted by additional ED providers. PHYSICAL EXAMINATION: GENERAL: Well-appearing, well-nourished and in no acute distress. A&Ox4. Answers questions appropriately. LUNGS: Breath sounds clear to auscultation bilaterally and equal. No wheezes rales or rhonchi. HEART: Regular rate and rhythm without murmurs, rubs, gallops. ABDOMEN: Soft, nondistended abdomen. No guarding, no rebound. Normal bowel sounds present. No CVA tenderness bilaterally. + Right upper quadrant tenderness (cannot elicit thorough abd exam w/o table, however). - Related Data Allergies/Adverse Reactions: No Known Allergies Allergy (Verified 09/27/18 12:46) Past Medical History - Past Medical History Cardiac Medical History: Reports: Hx Hypertension Denies: Hx Coronary Artery Disease, Hx Heart Attack Pulmonary Medical History: Reports: Hx Pneumonia - 2010 Denies: Hx Asthma, Hx Bronchitis, Hx COPD Neurological Medical History: Denies: Hx Cerebrovascular Accident, Hx Seizures Renal/ Medical History: Denies: Hx Peritoneal Dialysis Musculoskeltal Medical History: Reports Hx Arthritis - generalized Past Surgical History: Reports: Hx Breast Surgery - bilateral biospy, Hx Cholecystectomy, Hx Orthopedic Surgery - right hip, b/l shoulder, left elbow, Hx Tubal Ligation - Immunizations Hx Diphtheria, Pertussis, Tetanus Vaccination: Yes Physical Exam - Vital signs Vitals: Temp Pulse Resp BP Pulse Ox 98.2 F 106 H 16 139/91 H 95 02/02/19 17:03 02/02/19 17:03 02/02/19 17:03 02/02/19 17:03 02/02/19 17:03 Course - Vital Signs Vital signs: Temp Pulse Resp BP Pulse Ox 98.2 F 106 H 16 139/91 H 95 02/02/19 17:03 02/02/19 17:03 02/02/19 17:03 02/02/19 17:03 02/02/19 17:03 Doctor's Discharge - Discharge Referrals: RABIA MARTINI MD [Primary Care Provider] - Follow up as needed
[2019-02-02 18:06] LABS: APPEARANCE,URINE CLEAR; BILIRUBIN,URINE MODERATE (NEGATIVE); COLOR,URINE AMBER; GLUCOSE, URINE NEGATIVE (NEGATIVE); KETONES,URINE NEGATIVE (NEGATIVE); LEUKOCYTE ESTERASE,URINE NEGATIVE (NEGATIVE); NITRITE,URINE NEGATIVE (NEGATIVE); PROTEIN,URINE NEGATIVE (NEGATIVE); URINE SPECIFIC GRAVITY 1.014
--- NOTE | 2019-02-02 18:10 | RADIOLOGY REPORT (SQ) ---
EXAM DESCRIPTION: KUB/ABDOMEN (SINGLE VIEW) COMPLETED DATE/TIME: 02/02/2019 5:50 pm REASON FOR STUDY: RUQ abd pain, constipation COMPARISON: None. NUMBER OF VIEWS: One view. TECHNIQUE: Supine radiographic image of the abdomen acquired. LIMITATIONS: None. FINDINGS: BOWEL GAS PATTERN: Normal bowel gas pattern. No dilated loops. CALCIFICATIONS: No suspicious calcifications. SOFT TISSUES: No gross mass or suggestion of organomegaly. HARDWARE: Biliary stent. BONES: No bone lesions or fracture. OTHER: No other significant finding. IMPRESSION: NO RADIOGRAPHIC EVIDENCE FOR ACUTE ABDOMINAL DISEASE. Reading location - IP/workstation name: [email or web address]
--- NOTE | 2019-02-02 18:42 | RADIOLOGY REPORT (SQ) ---
EXAM DESCRIPTION: U/S ABDOMEN LIMITED W/O DOP COMPLETED DATE/TIME: 02/02/2019 6:25 pm REASON FOR STUDY: RUQ abd pain, h/o cholecystectomy. and stent placemat COMPARISON: 09/27/2018 TECHNIQUE: Dynamic and static grayscale images acquired of the abdomen and recorded on PACS. Rosa Mariao carlo selected color Doppler and spectral images recorded. LIMITATIONS: None. FINDINGS: PANCREAS: No masses. Visualized pancreatic duct normal caliber. LIVER: No masses. Echotexture normal. LIVER VASCULATURE: Normal directional flow of the main portal vein and hepatic veins. GALLBLADDER: Surgically absent. ULTRASOUND-DETECTED ORTEGA'S SIGN: Negative. INTRAHEPATIC DUCTS AND COMMON DUCT: Common bile duct is dilated at 14.1 mm. There is not appear to b e significant intrahepatic ductal dilatation. INFERIOR VENA CAVA: Normal flow. AORTA: No aneurysm. RIGHT KIDNEY: Normal size, 10.3 cm. Normal echogenicity. No solid or suspicious masses. No hydroneph rosis. No calcifications. PERITONEAL AND RIGHT PLEURAL SPACE: No ascites or effusions. OTHER: No other significant findings. IMPRESSION: Dilated common bile duct, likely secondary to the cholecystectomy. Correlate for biliar y obstruction. TECHNICAL DOCUMENTATION: JOB ID: [id number] [employer]- All Rights Reserved Reading location - IP/workstation name: [email or web address]
[2019-02-02 19:08] LABS: ABSOLUTE LYMPHOCYTES (AUTO) 1.2 10^3/uL (0.5-4.7); ABSOLUTE MONOCYTES (AUTO) 0.7 10^3/uL (0.1-1.4); ABSOLUTE NEUT (AUTO) 5.6 10^3/uL (1.7-8.2); BASOPHILS % (AUTO) 0.5 % (0-2); HEMATOCRIT 32.4 % (36.0-47.0); HEMOGLOBIN 11.1 g/dL (12.0-15.5); LYMPHOCYTES % (AUTO) 15.9 % (13-45); MEAN CORPUSCULAR HEMOGLOBIN 38.1 pg (27.0-33.4); MEAN CORPUSCULAR HGB CONC 34.3 g/dL (32.0-36.0); MEAN CORPUSCULAR VOLUME 111 fl (80-97); MONOCYTES % (AUTO) 8.7 % (3-13); PLATELET COUNT 404 10^3/uL (150-450); RED BLOOD COUNT 2.92 10^6/uL (3.72-5.28); RED CELL DISTRIBUTION WIDTH 16.2 % (11.5-14.0); SEGMENTED NEUTROPHILS % (AUTO) 74.9 % (42-78); TOTAL CELLS COUNTED % (AUTO) 100 %; WHITE BLOOD COUNT 7.5 10^3/uL (4.0-10.5)
[2019-02-02 19:19] LABS: ALANINE AMINOTRANSFERASE 93 U/L (9-52); ALBUMIN 4.6 g/dL (3.5-5.0); ALKALINE PHOSPHATASE 239 U/L (38-126); ANION GAP 10 (5-19); ASPARTATE AMINO TRANSFERASE 379 U/L (14-36); BILIRUBIN,DIRECT 2.6 mg/dL (0.0-0.4); BILIRUBIN,TOTAL 4.2 mg/dL (0.2-1.3); BLOOD UREA NITROGEN 8 mg/dL (7-20); CALCIUM 9.6 mg/dL (8.4-10.2); CARBON DIOXIDE 34 mmol/L (22-30); CHLORIDE 102 mmol/L (98-107); GLUCOSE 92 mg/dL (75-110); LIPASE 38.1 U/L (23-300); POTASSIUM 3.9 mmol/L (3.6-5.0); SODIUM 145.8 mmol/L (137-145); TOTAL PROTEIN 9.2 g/dL (6.3-8.2)
[2019-02-02 19:27] LABS: ANISOCYTOSIS 1+; PLATELET COMMENT ADEQUATE; POLYCHROMASIA SLIGHT; SCHISTOCYTES SLIGHT; SICKLE RED CELLS 1+; TARGET CELLS 2+
[2019-02-02] MEDS ORDERED: NORMAL SALINE 1000 ML 1,000 ML IV ONE (19:42)
[2019-02-02] MEDS ORDERED: MORPHINE SULFATE 10 MG/ML INJ IV ONE (19:42)
[2019-02-02] MEDS ORDERED: ONDANSETRON HCL INJ/PF 4 MG/2 ML SDV IV ONE (19:45)
[2019-02-02] MEDS ORDERED: RINGERS SOLUTION,LACTATED 1,000 ML IV ONE (22:54)
--- NOTE | 2019-02-02 22:56 | ER Document Report ---
ED General - General Chief Complaint: Abdominal Pain Stated Complaint: ABDOMINAL PAIN Time Seen by Provider: 02/02/19 17:17 Primary Care Provider: RABIA MARTINI MD [Primary Care Provider] - Follow up as needed Notes: Patient is a 48-year-old female with past surgical history of cholecystectomy with recurrent subsequent biliary strictures who presents with 2 days of progressively worsening upper abdominal pain with associated nausea and vomiting. Patient describes her pain as being a throbbing, cramping, constant discomfort to her epigastrium and right upper quadrant. Dramatically worsened by any attempt to take food intake. Nothing improves the pain. States this feels identical as to when she has had to have replacement of her biliary stents in the past. Is scheduled for replacement of her current stent in February but states that given that her pain has been getting progressively worse she does not believe she can wait until that time. She has not had fever. Has not seen her primary care doctor regarding today's concerns. TRAVEL OUTSIDE OF THE [place] IN LAST 30 DAYS: No - Related Data Allergies/Adverse Reactions: No Known Allergies Allergy (Verified 09/27/18 12:46) Past Medical History - General Information source: Patient - Social History Smoking Status: Never Smoker Frequency of alcohol use: None Drug Abuse: None Lives with: Spouse/Significant other Family History: Reviewed & Not Pertinent Patient has suicidal ideation: No Patient has homicidal ideation: No - Past Medical History Cardiac Medical History: Reports: Hx Hypertension Denies: Hx Coronary Artery Disease, Hx Heart Attack Pulmonary Medical History: Reports: Hx Pneumonia - 2010 Denies: Hx Asthma, Hx Bronchitis, Hx COPD Neurological Medical History: Denies: Hx Cerebrovascular Accident, Hx Seizures Renal/ Medical History: Denies: Hx Peritoneal Dialysis Musculoskeletal Medical History: Reports Hx Arthritis - generalized Past Surgical History: Reports: Hx Breast Surgery - bilateral biospy, Hx Cholecystectomy, Hx Orthopedic Surgery - right hip, b/l shoulder, left elbow, Hx Tubal Ligation - Immunizations Hx Diphtheria, Pertussis, Tetanus Vaccination: Yes Hx Pneumococcal Vaccination: 06/12/11 Review of Systems - Review of Systems Notes: Constitutional: Negative for fever. HENT: Negative for sore throat. Eyes: Negative for visual changes. Cardiovascular: Negative for chest pain. Respiratory: Negative for shortness of breath. Gastrointestinal: Positive for upper abdominal pain and vomiting Genitourinary: Negative for dysuria. Musculoskeletal: Negative for back pain. Skin: Negative for rash. Neurological: Negative for headaches, weakness or numbness. 10 point ROS negative except as marked above and in HPI. Physical Exam - Vital signs Vitals: Temp Pulse Resp BP Pulse Ox 98.2 F 106 H 16 139/91 H 95 02/02/19 17:03 02/02/19 17:03 02/02/19 17:03 02/02/19 17:03 02/02/19 17:03 Interpretation: Hypertensive, Tachycardic Notes: PHYSICAL EXAMINATION: GENERAL: Appears moderately uncomfortable but in no overt distress HEAD: Atraumatic, normocephalic. EYES: Pupils equal round and reactive to light, extraocular movements intact, sclera anicteric, conjunctiva are normal. ENT: nares patent, oropharynx clear without exudates. Moist mucous membranes. NECK: Normal range of motion, supple without lymphadenopathy LUNGS: Breath sounds clear to auscultation bilaterally and equal. No wheezes rales or rhonchi. HEART: Regular rate and rhythm without murmurs ABDOMEN: Soft, focal tenderness to the epigastrium and right upper quadrant, otherwise no localized tenderness, normoactive bowel sounds. No guarding, no rebound. No masses appreciated. EXTREMITIES: Normal range of motion, no pitting or edema. No cyanosis. NEUROLOGICAL: No focal neurological deficits. Moves all extremities spontaneously and on command. PSYCH: Normal mood, normal affect. SKIN: Warm, Dry, normal turgor, no rashes or lesions noted. Course - Re-evaluation Re-evalutation: 02/02/19 22:55 Patient has a history of recurrent biliary strictures, presents with rising LFTs, rising bilirubin, intractable right upper quadrant and epigastric abdominal pain with associated nausea and vomiting. Last stent placement was at [facility] in September 2018. LFTs were normal in December of this year although today again her bilirubin and LFTs are both elevated and there is common bile duct dilation noted on right upper quadrant ultrasound. The patient will require transfer to [facility] for replacement of the stent and is actually scheduled for this procedure in mid September but clearly with deranged LFTs and intractable pain at this time will not be able to wait until that time. She has been started on analgesia, IV fluids, and I have contacted [facility] for transfer. 02/02/19 23:53 Patient has been accepted by . Remained stable, pain control much improved at this time. - Vital Signs Vital signs: Temp Pulse Resp BP Pulse Ox 101.3 F H 106 H 15 110/59 L 93 02/03/19 03:11 02/02/19 17:03 02/02/19 21:31 02/03/19 04:01 02/03/19 04:01 - Laboratory Result Diagrams: 02/02/19 18:43 02/02/19 18:43 Laboratory results interpreted by me: 02/02/19 02/02/19 02/02/19 17:28 18:43 18:43 RBC 2.92 L Hgb 11.1 L Hct 32.4 L MCV 111 H MCH 38.1 H RDW 16.2 H Sodium 145.8 H Carbon Dioxide 34 H Creatinine 0.50 L Total Bilirubin 4.2 H Direct Bilirubin 2.6 H AST 379 H ALT 93 H Alkaline Phosphatase 239 H Total Protein 9.2 H Urine Bilirubin MODERATE H Urine Urobilinogen 4.0 H Urine Ascorbic Acid 40 H - Diagnostic Test Radiology reviewed: Reports reviewed Discharge - Discharge Clinical Impression: Upper abdominal pain, Biliary obstruction Nausea and vomiting Qualifiers: Vomiting type: unspecified Vomiting Intractability: non-intractable Qualified Code(s): R11.2 - Nausea with vomiting, unspecified Condition: Fair Disposition: [facility] Referrals: RABIA MARTINI MD [Primary Care Provider] - Follow up as needed
[2019-02-02] MEDS: HYDROMORPHONE HCL INJ/PF 2 MG/ML AMPULE IV PRN (23:22)
[2019-02-03] MEDS: HYDROMORPHONE HCL INJ/PF 2 MG/ML AMPULE IV PRN ×2 (01:21→03:25)
[2019-02-03] MEDS ORDERED: ACETAMINOPHEN 325 MG TABLET PO ONE (03:18)
[2019-02-03 04:14] VITALS: BP 110/59
== END 2019-02-03 04:25 | disposition short-term general hospital (02) ==
LOC: ER 16:54
DX: R10.10 Upper abdominal pain, unspecified (principal); K83.1 Obstruction of bile duct; R11.2 Nausea with vomiting, unspecified; Z90.49 Acquired absence of other specified parts of digestive tract
CPT/HCPCS: 96376; 99285; 96361; 96374; 96375; 36415; 83690; 85025; 80053; 81001; 74018; 76705; J3490; J2270; J1170 ×2; J2405; J7030; J7120

== ENCOUNTER 2019-02-21 11:12 | Day surgery (SDC) | payer MEDICAID ==
[~2019-02-21 11:12] MED LIST: CHONDR SU A NA/HYALUR INTRAOC KIT (SURGICARE) ONE; DORZOLAMIDE HCL 2%/TIMOLOL MALEAT 0.5% OPH SOLN 10 ML OS PRN; EPINEPHRINE INJ/PF 1 MG/1 ML AMPULE ONE; KETOROLAC TROMETHAMINE 0.45% 4 DROP/0.4 ML DROPERETTE OS PRN; LIDOCAINE 1% INJ-PF (10 MG/ML) 30 ML SDV ONE
[2019-02-21] MEDS: CYCLOPENTOLATE 0.2%/PHENYLEPHRINE 1% OPH SOLN 2 ML OS PRN ×3 (12:25→12:41)
[2019-02-21] MEDS: TROPICAMIDE 1% OPH SOLN 3 ML OS PRN ×3 (12:25→12:41)
[2019-02-21] MEDS: BESIFLOXACIN HCL 0.6% OPH SUSP 5 ML BOTTLE OS PRN ×4 (12:26→13:06)
[2019-02-21] MEDS: TETRACAINE HCL 0.5% OPH SOLN 0.6 ML DROPERETTE OS PRN ×3 (12:27→12:48)
[2019-02-21] MEDS ORDERED: MIDAZOLAM 2 MG/2 ML INJ ONE ×2 (12:39→12:54)
[2019-02-21] MEDS ORDERED: FENTANYL CITRATE INJ/PF 100 MCG/2 ML AMPUL ONE (12:39)
[2019-02-21] MEDS ORDERED: ONDANSETRON HCL INJ/PF 4 MG/2 ML SDV ONE (12:44)
[2019-02-21] MEDS: TOBRAMYCIN SULFATE/DEXAMETH OPH OINTMENT 3.5 GM ONE ×2 (12:59→13:06)
== END 2019-02-21 13:50 | disposition home or self-care (01) ==
LOC: SC 11:12
PROVIDERS: ATTEND Ophthalmology
DX: H25.12 Age-related nuclear cataract, left eye (principal); M06.9 Rheumatoid arthritis, unspecified; I10 Essential (primary) hypertension; D57.1 Sickle-cell disease without crisis; Z86.711 Personal history of pulmonary embolism; K21.9 Gastro-esophageal reflux disease without esophagitis; Z79.899 Other long term (current) drug therapy; Z79.01 Long term (current) use of anticoagulants
CPT/HCPCS: 66984; V2632; J2250; J3490 ×5; J0171; J3010; J2405; 142

== ENCOUNTER 2019-03-07 09:53 | Day surgery (SDC) | payer MEDICAID ==
[~2019-03-07 09:53] MED LIST changes: +BUPIVACAINE HCL 0.75% INJ/PF (7.5 MG/1 ML) 10 ML SDV OD PRN; +DORZOLAMIDE HCL 2%/TIMOLOL MALEAT 0.5% OPH SOLN 10 ML OD PRN; -DORZOLAMIDE HCL 2%/TIMOLOL MALEAT 0.5% OPH SOLN 10 ML OS PRN; +KETOROLAC TROMETHAMINE 0.45% 4 DROP/0.4 ML DROPERETTE OD PRN; -KETOROLAC TROMETHAMINE 0.45% 4 DROP/0.4 ML DROPERETTE OS PRN; +LIDOCAINE 4% INJ/PF (40 MG/ML) 5 ML AMPUL OD PRN
[2019-03-07] MEDS: TETRACAINE HCL 0.5% OPH SOLN 0.6 ML DROPERETTE OD PRN ×3 (10:43→11:15)
[2019-03-07] MEDS: BESIFLOXACIN HCL 0.6% OPH SUSP 5 ML BOTTLE OD PRN ×4 (10:44→11:36)
[2019-03-07] MEDS: TROPICAMIDE 1% OPH SOLN 3 ML OD PRN ×3 (10:44→11:05)
[2019-03-07] MEDS: CYCLOPENTOLATE 0.2%/PHENYLEPHRINE 1% OPH SOLN 2 ML OD PRN ×3 (10:44→11:05)
[2019-03-07] MEDS ORDERED: FENTANYL CITRATE INJ/PF 100 MCG/2 ML AMPUL ONE (11:22)
[2019-03-07] MEDS ORDERED: MIDAZOLAM 2 MG/2 ML INJ ONE ×2 (11:22→11:29)
[2019-03-07] MEDS: TOBRAMYCIN SULFATE/DEXAMETH OPH OINTMENT 3.5 GM ONE ×2 (11:31→11:36)
== END 2019-03-07 12:25 | disposition home or self-care (01) ==
LOC: SC 09:53
PROVIDERS: ATTEND Ophthalmology
DX: H25.11 Age-related nuclear cataract, right eye (principal); Z98.41 Cataract extraction status, right eye; M06.9 Rheumatoid arthritis, unspecified; I10 Essential (primary) hypertension; D57.1 Sickle-cell disease without crisis; J45.909 Unspecified asthma, uncomplicated; R01.1 Cardiac murmur, unspecified; Z79.899 Other long term (current) drug therapy; Z86.711 Personal history of pulmonary embolism; Z79.01 Long term (current) use of anticoagulants
CPT/HCPCS: 66984; 00142; V2632; J2250; J3490 ×5; J0171; 142; J3010

== ENCOUNTER → 2019-09-20 | Outpatient (CLI) | payer MEDICAID ==
[2019-09-20 12:19] LABS: HEMATOCRIT 30.4 % (36.0-47.0); HEMOGLOBIN 10.6 g/dL (12.0-15.5); MEAN CORPUSCULAR HEMOGLOBIN 37.5 pg (27.0-33.4); MEAN CORPUSCULAR HGB CONC 34.9 g/dL (32.0-36.0); MEAN CORPUSCULAR VOLUME 107 fl (80-97); PLATELET COUNT 379 10^3/uL (150-450); RED BLOOD COUNT 2.84 10^6/uL (3.72-5.28); RED CELL DISTRIBUTION WIDTH 17.3 % (11.5-14.0); WHITE BLOOD COUNT 4.4 10^3/uL (4.0-10.5)
[2019-09-20 12:42] LABS: ALBUMIN 4.2 g/dL (3.5-5.0); ALKALINE PHOSPHATASE 113 U/L (38-126); ANION GAP 10 (5-19); ASPARTATE AMINO TRANSFERASE 44 U/L (14-36); BILIRUBIN,DIRECT 0.3 mg/dL (0.0-0.4); BILIRUBIN,TOTAL 1.1 mg/dL (0.2-1.3); BLOOD UREA NITROGEN 8 mg/dL (7-20); C-REACTIVE PROTEIN 13.7 mg/L (<10.0); CALCIUM 9.4 mg/dL (8.4-10.2); CARBON DIOXIDE 34 mmol/L (22-30); CHLORIDE 98 mmol/L (98-107); GLUCOSE 87 mg/dL (75-110)
[2019-09-20 13:00] LABS: ABSOLUTE LYMPHOCYTES# (MANUAL) 1.7 10^3/uL (0.5-4.7); ABSOLUTE MONOCYTES # (MANUAL) 0.5 10^3/uL (0.1-1.4); BASOPHILS % (MANUAL) 1 % (0-2); EOSINOPHILS % (MANUAL) 5 % (0-6); LYMPHOCYTES % (MANUAL) 39 % (13-45); MONOCYTES % (MANUAL) 12 % (3-13); NUCLEATED RED BLOOD CELLS 3 /100 WBC (0); SEGMENTED NEUTROPHILS % (MAN) 43 % (42-78); TOTAL CELLS COUNTED 100
[2019-09-20 13:01] LABS: ANISOCYTOSIS 1+; PLATELET COMMENT ADEQUATE
[2019-09-20 13:02] LABS: ERYTHROCYTE SEDIMENTATION RATE 84 mm/hr (0-30)
[2019-09-20 13:04] LABS: POLYCHROMASIA 1+; SICKLE RED CELLS 1+
[2019-09-20 13:05] LABS: POIKILOCYTOSIS 3+
--- NOTE | 2019-09-20 14:32 | RADIOLOGY REPORT (SQ) ---
EXAM DESCRIPTION: ANKLE RIGHT COMPLETE COMPLETED DATE/TIME: 09/20/2019 12:50 pm REASON FOR STUDY: NON-PRS CHRONIC ULCER OF RIGHT ANKLE W FAT LAYER EXPOSED L97.312 NON-PRS CHRONIC ULCER OF RIGHT ANKLE W FAT LAYER EXP L97.322 NON-PRESSURE CHRONIC ULCER OF LEFT ANKLE W FAT LAYER COMPARISON: None. NUMBER OF VIEWS: Three views. TECHNIQUE: AP, lateral, and oblique radiographic images acquired of the right ankle. LIMITATIONS: None. FINDINGS: MINERALIZATION: Normal. BONES: No acute fracture or dislocation. No worrisome bone lesions. JOINTS: No effusions. SOFT TISSUES: Lateral swelling. No foreign body. OTHER: No other significant finding. IMPRESSION: No evidence of osteomyelitis. TECHNICAL DOCUMENTATION: JOB ID: [id number] [employer]- All Rights Reserved Reading location - IP/workstation name: [email or web address]
--- NOTE | 2019-09-20 14:32 | RADIOLOGY REPORT (SQ) ---
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 NUMBER OF VIEWS: Six views. TECHNIQUE: AP, lateral and oblique without weight bearing radiographic images acquired of the left ankle and left foot. LIMITATIONS: None. FINDINGS: MINERALIZATION: Normal. BONES: No acute fracture or dislocation. No worrisome bone lesions. No significant osteophytes. JOINTS: No erosions. No yadiel-articular osteopenia. No chondrocalcinosis. SOFT TISSUES: No foreign body. OTHER: No other significant finding. IMPRESSION: No evidence of osteomyelitis. TECHNICAL DOCUMENTATION: JOB ID: [id number] [employer]- All Rights Reserved Reading location - IP/workstation name: [email or web address]
--- NOTE | 2019-09-20 14:32 | RADIOLOGY REPORT (SQ) ---
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 NUMBER OF VIEWS: Six views. TECHNIQUE: AP, lateral and oblique without weight bearing radiographic images acquired of the left ankle and left foot. LIMITATIONS: None. FINDINGS: MINERALIZATION: Normal. BONES: No acute fracture or dislocation. No worrisome bone lesions. No significant osteophytes. JOINTS: No erosions. No yadiel-articular osteopenia. No chondrocalcinosis. SOFT TISSUES: No foreign body. OTHER: No other significant finding. IMPRESSION: No evidence of osteomyelitis. TECHNICAL DOCUMENTATION: JOB ID: [id number] [employer]- All Rights Reserved Reading location - IP/workstation name: [email or web address]
== END ==
LOC: WC 11:29
PROVIDERS: ATTEND Preventive Medicine Undersea and Hyperbaric Medicine
DX: L97.312 Non-pressure chronic ulcer of right ankle with fat layer exposed (principal); L97.322 Non-pressure chronic ulcer of left ankle with fat layer exposed
CPT/HCPCS: 36415; 80053; 85025; 85652; 86140

== ENCOUNTER → 2019-10-09 | Outpatient (CLI) | payer MEDICAID ==
--- NOTE | 2019-10-09 14:41 | XCELERA REPORT ---
[address] [address] Lower Extremity Venous Evaluation Procedure: A bilateral duplex scan of the lower extremity veins was performed. The evaluation included responses to compression and other maneuvers with patient in the supine and standing positions to assess venous insufficiency. Right Sided Venous Evaluation Deep venous system evaluation shows patent veins with no significant reflux identified. Sapheno Femoral junction: no reflux. Greater Saphenous vein, Proximal thigh: reflux: no reflux. Greater Saphenous vein, mid thigh: reflux:no reflux. Greater Saphenous vein, Distal thigh: reflux:no reflux. Greater Saphenous vein, Proximal below knee: reflux: none Greater Saphenous vein, Mid below knee: reflux: 2.4 seconds, 3.7 mm diameter.. Greater Saphenous vein, Distal below knee: reflux: no reflux. No significant Perforators identified. Left Sided Venous Evaluation Deep venous system evaluation shows patent veins with no significant reflux identified. Sapheno Femoral junction: no reflux. Greater Saphenous vein, Proximal thigh: reflux: 0.7 second reflux. 3.1 mm diameter. Greater Saphenous vein, mid thigh: reflux:no reflux. Greater Saphenous vein, Distal thigh: reflux:no reflux. Greater Saphenous vein, Proximal below knee: reflux: none Greater Saphenous vein, Mid below knee: reflux: none. Greater Saphenous vein, Distal below knee: reflux: no reflux. No significant Perforators identified. Interpretation Summary No duplex evidence of DVT or obstruction in the bilateral lower extremities. Short segments of Greater Saphenous reflux as noted. Name: NAIMA SAEED Age: 48 yrs Gender: Female : 1970 Patient Status: Outpatient Patient Location: Study Date: 10/09/2019 09:53 AM Reason For Study: RT ANKLE ULCER Ordering Physician: KEREN WALL Performed By: Hugo Griffin : KEREN WALL > Sriram Thompson
--- NOTE | 2019-10-09 14:49 | XCELERA REPORT ---
[address] [address] Lower Extremity Arterial Evaluation Name: NAIMA SAEED Age: 48 yrs Gender: Female : 1970 Patient Status: Outpatient Patient Location: Study Date: 10/09/2019 09:24 AM Procedure: A color flow and duplex scan of the lower extremity arteries was performed bilaterally with velocity and waveform anaylsis. Ankle brachial indicies performed. Reason For Study: RT ANKLE ULCER Ordering Physician: KEREN WALL Performed By: Hugo Griffin Measurements and Calculations Right Left INFORMATION SECURITY MANAGER PSV 118.7 118.7 cm/sec Prox PFA PSV -80.8 -82.5 cm/sec Prox SFA PSV 90.4 105.3 cm/sec Mid SFA PSV -79.0 -93.2 cm/sec Dist SFA PSV -89.5 -95.9 cm/sec Prox Pop A PSV 58.5 83.5 cm/sec Dist Pop A PSV -74.6 -101.2cm/sec Dist MADDY PSV 85.6 91.8 cm/sec Dist MANAGER FLORAL PSV 83.8 114.7 cm/sec Raul Pedis PSV 86.9 -101.7cm/sec Right Side Arterial Evaluation Normal velocity and triphasic waveforms noted from the Common Femoral artery to the infrageniculate vessels . Ankle Brachial index 1.21. Left Side Arterial Evaluation 4.9 x 1 x 1 cms. mass with echogenic center noted in the thigh. Normal velocity and triphasic waveforms noted from the Common Femoral artery to the infrageniculate vessels . Ankle Brachial index 1.21. Interpretation Summary No hemodynamically significant lesions in the bilateral lower extremities, on duplex imaging, at rest. Duplex shows an enlarged lymph node in the left thigh. : KEREN WALL > Sriram Thompson
== END ==
LOC: SP 08:39
PROVIDERS: ATTEND Preventive Medicine Undersea and Hyperbaric Medicine
DX: L97.312 Non-pressure chronic ulcer of right ankle with fat layer exposed (principal); L97.322 Non-pressure chronic ulcer of left ankle with fat layer exposed
CPT/HCPCS: 93922; 93925; 93970

== ENCOUNTER → 2019-12-20 | Outpatient (CLI) | payer MEDICAID ==
--- NOTE | 2019-12-20 15:08 | RADIOLOGY REPORT (SQ) ---
EXAM DESCRIPTION: ANKLE LEFT COMPLETE IMAGES COMPLETED DATE/TIME: 12/20/2019 2:28 pm REASON FOR STUDY: NON-PRESSURE CHRONIC ULCER OF LEFT ANKLE W FAT LAYER EXPOSED L97.322 NON-PRESSURE CHRONIC ULCER OF LEFT ANKLE W FAT LAYER D57.1 SICKLE-CELL DISEASE WITHOUT CRISIS COMPARISON: 09/20/2019. NUMBER OF VIEWS: Three views. TECHNIQUE: AP, lateral, and oblique without weight bearing radiographic images acquired of the left ankle. LIMITATIONS: None. FINDINGS: MINERALIZATION: Normal. BONES: No acute fracture or dislocation. No worrisome bone lesions. No significant osteophytes. JOINTS: No effusions. SOFT TISSUES: Mild medial soft tissue swelling with suggestion of a small superficial defect. No fore ign body. OTHER: No other significant finding. IMPRESSION: MILD MEDIAL SOFT TISSUE SWELLING WITH APPARENT SUPERFICIAL ULCERATION. NO RADIOGRAPHIC EVIDENCE OF OSTEOMYELITIS. TECHNICAL DOCUMENTATION: JOB ID: [id number] 2010 [employer]- All Rights Reserved Reading location - IP/workstation name: [email or web address]
[2019-12-21 15:00] LABS: HEMATOCRIT 30.9 % (36.0-47.0); HEMOGLOBIN 10.8 g/dL (12.0-15.5); MEAN CORPUSCULAR HEMOGLOBIN 39.8 pg (27.0-33.4); MEAN CORPUSCULAR HGB CONC 35.1 g/dL (32.0-36.0); PLATELET COUNT 272 10^3/uL (150-450); RED BLOOD COUNT 2.72 10^6/uL (3.72-5.28); RED CELL DISTRIBUTION WIDTH 17.4 % (11.5-14.0); WHITE BLOOD COUNT 2.9 10^3/uL (4.0-10.5)
[2019-12-21 15:10] LABS: MEAN CORPUSCULAR VOLUME 114 fl (80-97)
[2019-12-21 15:19] LABS: ALBUMIN 4.2 g/dL (3.5-5.0); ALKALINE PHOSPHATASE 96 U/L (38-126); ASPARTATE AMINO TRANSFERASE 42 U/L (14-36); BILIRUBIN,DIRECT 0.1 mg/dL (0.0-0.4); BILIRUBIN,TOTAL 0.9 mg/dL (0.2-1.3); BLOOD UREA NITROGEN 10 mg/dL (7-20); C-REACTIVE PROTEIN 19.4 mg/L (<10.0); CALCIUM 9.1 mg/dL (8.4-10.2); CARBON DIOXIDE 35 mmol/L (22-30); CHLORIDE 100 mmol/L (98-107); GLUCOSE 148 mg/dL (75-110); POTASSIUM 4.1 mmol/L (3.6-5.0); TOTAL PROTEIN 8.6 g/dL (6.3-8.2)
[2019-12-21 15:25] LABS: ANION GAP 5 (5-19)
[2019-12-21 15:36] LABS: ERYTHROCYTE SEDIMENTATION RATE 60 mm/hr (0-30)
[2019-12-21 15:45] LABS: ABSOLUTE LYMPHOCYTES# (MANUAL) 1.6 10^3/uL (0.5-4.7); ABSOLUTE MONOCYTES # (MANUAL) 0.1 10^3/uL (0.1-1.4); BASOPHILS % (MANUAL) 0 % (0-2); EOSINOPHILS % (MANUAL) 0 % (0-6); LYMPHOCYTES % (MANUAL) 56 % (13-45); MONOCYTES % (MANUAL) 5 % (3-13); NUCLEATED RED BLOOD CELLS 11 /100 WBC (0); SEGMENTED NEUTROPHILS % (MAN) 39 % (42-78); TOTAL CELLS COUNTED 100
[2019-12-21 15:50] LABS: PLATELET COMMENT ADEQUATE
[2019-12-21 15:51] LABS: OVALOCYTES 1+; SCHISTOCYTES SLIGHT; TARGET CELLS 1+; TEAR DROP CELLS SLIGHT
[2019-12-21 15:54] LABS: POLYCHROMASIA SLIGHT
[2019-12-21 16:01] LABS: ANISOCYTOSIS 1+; POIKILOCYTOSIS 2+
[2019-12-21 16:02] LABS: SICKLE RED CELLS SLIGHT
== END ==
LOC: WC 14:19
PROVIDERS: ATTEND Preventive Medicine Undersea and Hyperbaric Medicine
DX: L97.322 Non-pressure chronic ulcer of left ankle with fat layer exposed (principal); D57.1 Sickle-cell disease without crisis
CPT/HCPCS: 36415; 80053; 85025; 85652; 86140

== ENCOUNTER → 2020-01-17 | Outpatient (CLI) | payer MEDICAID ==
--- NOTE | 2020-01-17 16:16 | RADIOLOGY REPORT (SQ) ---
EXAM DESCRIPTION: ANKLE LEFT COMPLETE IMAGES COMPLETED DATE/TIME: 01/17/2020 3:46 pm REASON FOR STUDY: NON-PRESSURE CHRONIC ULCER OF LEFT ANKLE W FAT LAYER EXPOSED D57.1 SICKLE-CELL DI SEASE WITHOUT CRISIS L97.322 NON-PRESSURE CHRONIC ULCER OF LEFT ANKLE W FAT LAYER COMPARISON: None. NUMBER OF VIEWS: Three views. TECHNIQUE: AP, lateral, and oblique radiographic images acquired of the left ankle. LIMITATIONS: None. FINDINGS: MINERALIZATION: Normal. BONES: No acute fracture or dislocation. No worrisome bone lesions. JOINTS: No effusions. SOFT TISSUES: Soft tissue changes along the distal right calf. OTHER: No other significant finding. IMPRESSION: Soft tissue changes consistent with history. No underlying bony abnormalities. TECHNICAL DOCUMENTATION: JOB ID: [id number] 2010 [employer]- All Rights Reserved Reading location - IP/workstation name: [email or web address]
[2020-01-17 16:17] LABS: HEMATOCRIT 32.8 % (36.0-47.0); HEMOGLOBIN 11.6 g/dL (12.0-15.5); MEAN CORPUSCULAR HEMOGLOBIN 40.2 pg (27.0-33.4); MEAN CORPUSCULAR HGB CONC 35.4 g/dL (32.0-36.0); PLATELET COUNT 295 10^3/uL (150-450); RED BLOOD COUNT 2.89 10^6/uL (3.72-5.28); RED CELL DISTRIBUTION WIDTH 16.5 % (11.5-14.0); WHITE BLOOD COUNT 4.3 10^3/uL (4.0-10.5)
[2020-01-17 16:36] LABS: ALBUMIN 4.2 g/dL (3.5-5.0); ALKALINE PHOSPHATASE 118 U/L (38-126); ANION GAP 6 (5-19); ASPARTATE AMINO TRANSFERASE 40 U/L (14-36); BILIRUBIN,DIRECT 0.1 mg/dL (0.0-0.4); BILIRUBIN,TOTAL 1.3 mg/dL (0.2-1.3); BLOOD UREA NITROGEN 9 mg/dL (7-20); C-REACTIVE PROTEIN 21.3 mg/L (<10.0); CALCIUM 9.1 mg/dL (8.4-10.2); CARBON DIOXIDE 35 mmol/L (22-30); CHLORIDE 96 mmol/L (98-107); GLUCOSE 89 mg/dL (75-110); TOTAL PROTEIN 8.8 g/dL (6.3-8.2)
[2020-01-17 16:54] LABS: ERYTHROCYTE SEDIMENTATION RATE 59 mm/hr (0-30)
[2020-01-17 17:56] LABS: ABSOLUTE LYMPHOCYTES# (MANUAL) 1.4 10^3/uL (0.5-4.7); ABSOLUTE MONOCYTES # (MANUAL) 0.5 10^3/uL (0.1-1.4); BASOPHILS % (MANUAL) 1 % (0-2); EOSINOPHILS % (MANUAL) 1 % (0-6); LYMPHOCYTES % (MANUAL) 31 % (13-45); MONOCYTES % (MANUAL) 11 % (3-13); NUCLEATED RED BLOOD CELLS 7 /100 WBC (0); SEGMENTED NEUTROPHILS % (MAN) 55 % (42-78); TOTAL CELLS COUNTED 100
[2020-01-17 18:01] LABS: TOXIC GRANULATION 2+
[2020-01-17 18:02] LABS: ANISOCYTOSIS 1+; POLYCHROMASIA SLIGHT
[2020-01-17 18:04] LABS: OVALOCYTES 1+; TARGET CELLS 3+
[2020-01-17 18:05] LABS: PLATELET COMMENT ADEQUATE; SCHISTOCYTES SLIGHT
[2020-01-17 18:06] LABS: BURR CELLS SLIGHT
[2020-01-17 18:09] LABS: SICKLE RED CELLS 1+
[2020-01-17 18:12] LABS: MEAN CORPUSCULAR VOLUME 113 fl (80-97)
[2020-01-18 12:11] LABS: PATH REVIEW PATHOLOGIST REVIEWED
== END ==
LOC: OD 15:04
PROVIDERS: ATTEND Preventive Medicine Undersea and Hyperbaric Medicine
DX: L97.322 Non-pressure chronic ulcer of left ankle with fat layer exposed (principal); D57.1 Sickle-cell disease without crisis
CPT/HCPCS: 36415; 80053; 85025; 85652; 86140

== ENCOUNTER → 2020-03-06 | Outpatient (CLI) | payer MEDICAID ==
--- NOTE | 2020-03-06 15:12 | RADIOLOGY REPORT (SQ) ---
EXAM DESCRIPTION: ANKLE LEFT COMPLETE IMAGES COMPLETED DATE/TIME: 03/06/2020 2:46 pm REASON FOR STUDY: NON-PRESSURE CHRONIC ULCER OF LEFT ANKLE W FAT LAYER EXPOSED L97.322 NON-PRESSURE CHRONIC ULCER OF LEFT ANKLE W FAT LAYER COMPARISON: None. NUMBER OF VIEWS: Three views. TECHNIQUE: AP, lateral, and oblique radiographic images acquired of the left ankle. LIMITATIONS: None. FINDINGS: MINERALIZATION: Normal. BONES: No acute fracture or dislocation. No worrisome bone lesions. JOINTS: No effusions. SOFT TISSUES: No soft tissue swelling. No foreign body. OTHER: No other significant finding. IMPRESSION: There is no evidence of osteomyelitis or other osseous finding. TECHNICAL DOCUMENTATION: JOB ID: [id number] 2010 [employer]- All Rights Reserved Reading location - IP/workstation name: [email or web address]
[2020-03-06 15:33] LABS: RED CELL DISTRIBUTION WIDTH 15.8 % (11.5-14.0)
[2020-03-06 15:42] LABS: HEMATOCRIT 32.7 % (36.0-47.0); HEMOGLOBIN 11.5 g/dL (12.0-15.5); MEAN CORPUSCULAR HEMOGLOBIN 38.9 pg (27.0-33.4); MEAN CORPUSCULAR HGB CONC 35.3 g/dL (32.0-36.0); PLATELET COUNT 293 10^3/uL (150-450); RED BLOOD COUNT 2.96 10^6/uL (3.72-5.28); WHITE BLOOD COUNT 4.9 10^3/uL (4.0-10.5)
[2020-03-06 15:51] LABS: ALBUMIN 4.4 g/dL (3.5-5.0); ALKALINE PHOSPHATASE 111 U/L (38-126); ANION GAP 9 (5-19); ASPARTATE AMINO TRANSFERASE 51 U/L (14-36); BILIRUBIN,DIRECT 0.1 mg/dL (0.0-0.4); BILIRUBIN,TOTAL 1.3 mg/dL (0.2-1.3); BLOOD UREA NITROGEN 11 mg/dL (7-20); C-REACTIVE PROTEIN 15.2 mg/L (<10.0); CALCIUM 9.2 mg/dL (8.4-10.2); CARBON DIOXIDE 30 mmol/L (22-30); CHLORIDE 101 mmol/L (98-107); GLUCOSE 90 mg/dL (75-110); POTASSIUM 4.2 mmol/L (3.6-5.0); TOTAL PROTEIN 8.9 g/dL (6.3-8.2)
[2020-03-06 15:57] LABS: ABSOLUTE LYMPHOCYTES# (MANUAL) 2.8 10^3/uL (0.5-4.7); ABSOLUTE MONOCYTES # (MANUAL) 0.1 10^3/uL (0.1-1.4); BASOPHILS % (MANUAL) 0 % (0-2); EOSINOPHILS % (MANUAL) 0 % (0-6); LYMPHOCYTES % (MANUAL) 57 % (13-45); MONOCYTES % (MANUAL) 3 % (3-13); NUCLEATED RED BLOOD CELLS 5 /100 WBC (0); SEGMENTED NEUTROPHILS % (MAN) 39 % (42-78); TOTAL CELLS COUNTED 100
[2020-03-06 15:58] LABS: ANISOCYTOSIS SLIGHT
[2020-03-06 16:01] LABS: BURR CELLS SLIGHT; OVALOCYTES 1+; PLATELET COMMENT ADEQUATE; POIKILOCYTOSIS 2+; POLYCHROMASIA SLIGHT; SCHISTOCYTES SLIGHT; TARGET CELLS 2+; TEAR DROP CELLS SLIGHT
[2020-03-06 16:02] LABS: MEAN CORPUSCULAR VOLUME 110 fl (80-97)
[2020-03-06 16:03] LABS: SICKLE RED CELLS SLIGHT
[2020-03-06 16:31] LABS: ERYTHROCYTE SEDIMENTATION RATE 68 mm/hr (0-30)
== END ==
LOC: WC 14:18
PROVIDERS: ATTEND Preventive Medicine Undersea and Hyperbaric Medicine
DX: L97.322 Non-pressure chronic ulcer of left ankle with fat layer exposed (principal)
CPT/HCPCS: 36415; 80053; 85025; 85652; 86140

== ENCOUNTER → 2020-05-16 | Outpatient (CLI) | payer MEDICAID ==
[2020-05-16 13:46] LABS: HEMATOCRIT 32.4 % (36.0-47.0); HEMOGLOBIN 11.3 g/dL (12.0-15.5); MEAN CORPUSCULAR HEMOGLOBIN 37.6 pg (27.0-33.4); MEAN CORPUSCULAR HGB CONC 34.9 g/dL (32.0-36.0); MEAN CORPUSCULAR VOLUME 108 fl (80-97); PLATELET COUNT 332 10^3/uL (150-450); RED CELL DISTRIBUTION WIDTH 15.3 % (11.5-14.0); WHITE BLOOD COUNT 3.3 10^3/uL (4.0-10.5)
[2020-05-16 14:08] LABS: ALBUMIN 4.3 g/dL (3.5-5.0); ALKALINE PHOSPHATASE 101 U/L (38-126); ANION GAP 5 (5-19); ASPARTATE AMINO TRANSFERASE 45 U/L (14-36); BILIRUBIN,DIRECT 0.3 mg/dL (0.0-0.4); BILIRUBIN,TOTAL 1.2 mg/dL (0.2-1.3); BLOOD UREA NITROGEN 12 mg/dL (7-20); C-REACTIVE PROTEIN 17.4 mg/L (<10.0); CALCIUM 9.3 mg/dL (8.4-10.2); CARBON DIOXIDE 34 mmol/L (22-30); CHLORIDE 101 mmol/L (98-107); GLUCOSE 106 mg/dL (75-110); TOTAL PROTEIN 8.4 g/dL (6.3-8.2)
[2020-05-16 14:27] LABS: ERYTHROCYTE SEDIMENTATION RATE 45 mm/hr (0-30)
[2020-05-16 15:01] LABS: ABSOLUTE LYMPHOCYTES# (MANUAL) 1.1 10^3/uL (0.5-4.7); ABSOLUTE MONOCYTES # (MANUAL) 0.4 10^3/uL (0.1-1.4); BASOPHILS % (MANUAL) 1 % (0-2); EOSINOPHILS % (MANUAL) 1 % (0-6); LYMPHOCYTES % (MANUAL) 33 % (13-45); MONOCYTES % (MANUAL) 12 % (3-13); NUCLEATED RED BLOOD CELLS 2 /100 WBC (0); SEGMENTED NEUTROPHILS % (MAN) 53 % (42-78); TOTAL CELLS COUNTED 100
[2020-05-16 15:02] LABS: ANISOCYTOSIS SLIGHT; PLATELET COMMENT ADEQUATE
[2020-05-16 15:06] LABS: POIKILOCYTOSIS 1+; SICKLE RED CELLS 1+; TARGET CELLS 1+
== END ==
LOC: OD 13:02
PROVIDERS: ATTEND Preventive Medicine Undersea and Hyperbaric Medicine
DX: L97.322 Non-pressure chronic ulcer of left ankle with fat layer exposed (principal)
CPT/HCPCS: 36415; 80053; 85025; 85652; 86140

== ENCOUNTER → 2020-05-20 | Outpatient (CLI) | payer MEDICAID ==
[2020-05-20 14:18] LABS: HEMATOCRIT 31.6 % (36.0-47.0); HEMOGLOBIN 11.1 g/dL (12.0-15.5); MEAN CORPUSCULAR HEMOGLOBIN 37.9 pg (27.0-33.4); MEAN CORPUSCULAR HGB CONC 35.2 g/dL (32.0-36.0); MEAN CORPUSCULAR VOLUME 108 fl (80-97); PLATELET COUNT 309 10^3/uL (150-450); RED BLOOD COUNT 2.93 10^6/uL (3.72-5.28); RED CELL DISTRIBUTION WIDTH 15.7 % (11.5-14.0); WHITE BLOOD COUNT 3.9 10^3/uL (4.0-10.5)
[2020-05-20 14:40] LABS: ALBUMIN 4.2 g/dL (3.5-5.0); ALKALINE PHOSPHATASE 99 U/L (38-126); ANION GAP 8 (5-19); ASPARTATE AMINO TRANSFERASE 51 U/L (14-36); BILIRUBIN,DIRECT 0.3 mg/dL (0.0-0.4); BILIRUBIN,TOTAL 1.1 mg/dL (0.2-1.3); BLOOD UREA NITROGEN 11 mg/dL (7-20); C-REACTIVE PROTEIN 11.4 mg/L (<10.0); CALCIUM 9.1 mg/dL (8.4-10.2); CARBON DIOXIDE 32 mmol/L (22-30); CHLORIDE 100 mmol/L (98-107); GLUCOSE 82 mg/dL (75-110); POTASSIUM 4.1 mmol/L (3.6-5.0); TOTAL PROTEIN 8.2 g/dL (6.3-8.2)
[2020-05-20 15:44] LABS: ABSOLUTE LYMPHOCYTES# (MANUAL) 1.9 10^3/uL (0.5-4.7); ABSOLUTE MONOCYTES # (MANUAL) 0.3 10^3/uL (0.1-1.4); BASOPHILS % (MANUAL) 0 % (0-2); EOSINOPHILS % (MANUAL) 2 % (0-6); LYMPHOCYTES % (MANUAL) 49 % (13-45); MONOCYTES % (MANUAL) 8 % (3-13); NUCLEATED RED BLOOD CELLS 2 /100 WBC (0); SEGMENTED NEUTROPHILS % (MAN) 41 % (42-78); TOTAL CELLS COUNTED 100
[2020-05-20 15:46] LABS: ANISOCYTOSIS 1+; OVALOCYTES 2+; POIKILOCYTOSIS 3+; SICKLE RED CELLS SLIGHT
[2020-05-20 15:47] LABS: BURR CELLS SLIGHT; PLATELET COMMENT ADEQUATE; TARGET CELLS 3+; TEAR DROP CELLS SLIGHT
[2020-05-20 15:48] LABS: SCHISTOCYTES SLIGHT
[2020-05-20 15:54] LABS: ERYTHROCYTE SEDIMENTATION RATE 55 mm/hr (0-30)
== END ==
LOC: WC 12:26
PROVIDERS: ATTEND Preventive Medicine Undersea and Hyperbaric Medicine
DX: L97.322 Non-pressure chronic ulcer of left ankle with fat layer exposed (principal)
CPT/HCPCS: 36415; 80053; 85025; 85652; 86140

== ENCOUNTER → 2020-06-19 | Outpatient (CLI) | payer MEDICAID | LOC: OD 12:46 | PROVIDERS: ATTEND Nurse Practitioner Family | DX: D57.1 Sickle-cell disease without crisis (principal); L97.322 Non-pressure chronic ulcer of left ankle with fat layer exposed | CPT/HCPCS: 36415; 84630 ==

== ENCOUNTER → 2020-06-25 | Outpatient (CLI) | payer MEDICAID ==
--- NOTE | 2020-06-25 16:28 | RADIOLOGY REPORT (SQ) ---
EXAM DESCRIPTION: HIP LEFT AP/LATERAL IMAGES COMPLETED DATE/TIME: 06/25/2020 2:48 pm REASON FOR STUDY: M25.552 PAIN IN LEFT HIP M25.552 PAIN IN LEFT HIP . Sickle cell anemia. COMPARISON: CT abdomen and pelvis, 03/14/2018. . NUMBER OF VIEWS: Two views. TECHNIQUE: AP pelvis and additional frog legview of the left hip. LIMITATIONS: None. FINDINGS: MINERALIZATION: Normal. LEFT HIP: There is severe degenerative change with joint space narrowing, bony remodeling, subchondra l sclerosis and cystic change, with large marginal osteophytes at the femoral head and acetabulum. T here is collapse of the femoral head. No acute fracture or cortical disruption. RIGHT HIP: Right hip arthroplasty with components in good alignment. No evidence of hardware fractur e, loosening or subsidence. PUBIS AND ISCHIUM: No fracture. PELVIS: No fracture. SACRUM: No fracture or dislocation. No worrisome bone lesions. LOWER LUMBAR SPINE: No fracture or dislocation. No worrisome bone lesions. No significant disc disea se. SOFT TISSUES: No findings. OTHER: No other significant finding. IMPRESSION: Severe degenerative change at the left hip, consistent with severe avascular necrosis wi th superimposed osteoarthritis. Findings are not significantly changed from previous CT. No acute f racture or dislocation. TECHNICAL DOCUMENTATION: JOB ID: [id number] [employer]- All Rights Reserved Reading location - IP/workstation name: [email or web address]
== END ==
LOC: RAD 15:32
PROVIDERS: ATTEND Nurse Practitioner Adult Health
DX: M87.852 Other osteonecrosis, left femur (principal); M16.12 Unilateral primary osteoarthritis, left hip; M25.552 Pain in left hip

== ENCOUNTER → 2020-09-23 | Outpatient (CLI) | payer MEDICAID ==
--- NOTE | 2020-09-23 13:25 | RADIOLOGY REPORT (SQ) ---
EXAM DESCRIPTION: HIP LEFT AP/LATERAL IMAGES COMPLETED DATE/TIME: 09/23/2020 1:07 pm REASON FOR STUDY: (M54.5)LOW BACK PAIN M54.5 LOW BACK PAIN COMPARISON: 06/25/2020 NUMBER OF VIEWS: Two views. TECHNIQUE: AP pelvis and additional frog legview of the left hip. LIMITATIONS: None. FINDINGS: MINERALIZATION: Normal. LEFT HIP: Degenerative joint disease. There is sclerosis in the femoral head raising the possibility of avascular necrosis. RIGHT HIP: Total hip replacement. PUBIS AND ISCHIUM: No fracture. PELVIS: No fracture. SACRUM: No fracture or dislocation. No worrisome bone lesions. LOWER LUMBAR SPINE: No fracture or dislocation. No worrisome bone lesions. No significant disc disea se. SOFT TISSUES: No findings. OTHER: No other significant finding. IMPRESSION: Degenerative joint disease in the left hip. Cannot exclude avascular necrosis. TECHNICAL DOCUMENTATION: JOB ID: [id number] 2010 [employer]- All Rights Reserved Reading location - IP/workstation name: [email or web address]
== END ==
LOC: RAD 12:28
PROVIDERS: ATTEND Internal Medicine Geriatric Medicine
DX: M54.5 Low back pain (principal)